=== PATIENT | male | born 1940 | race Caucasian/White ===

== ENCOUNTER 2018-03-20 08:48 | Inpatient (IN) | payer MEDICARE, SELFPAY ==
[2018-03-08 13:00] VITALS: BP 128/68; PULSE 76; RESP 16; TEMP 36.8; O2SAT 98; BMI 31.4
--- NOTE | 2018-03-08 13:32 | SDCEKG_ITS ---
Test Reason : Blood Pressure : / mmHG Vent. Rate : 071 BPM Atrial Rate : 071 BPM P-R Int : 128 ms QRS Dur : 078 ms QT Int : 378 ms P-R-T Axes : 044 027 041 degrees QTc Int : 410 ms Normal sinus rhythm Possible Left atrial enlargement Borderline ECG Confirmed by FAITH DE LA ROSA, LUCHO ([id number]), art editor ISABELL CLEMENTE ([id number]) on 03/13/2018 8:34:15 AM Referred By: Don Chisholm Confirmed By:LUCHO CUEVAS MD
[2018-03-08 13:55] LABS: Absolute Lymphocyte Count 2.27 X10^3/ul (0.83-4.51); Absolute Neutrophil Count 3.6 X10^3/uL (2.0-7.7); Basophil# 0.02 X10^3/uL; Basophil% 0.3 % (0-1); Eosinophil# 0.12 X10^3/uL; Eosinophils% 1.8 % (0-5); Hematocrit 39.1 % (40-54); Hemoglobin 12.7 g/dl (13.0-16.5); Lymphocyte # 2.27 X10^3/ul (4.0); Lymphocyte % 33.6 % (19-41); Mean Corp Hgb Conc 32.5 g/gl (32-36); Mean Corpuscular Hgb 30.4 pg (27.0-32.0); Mean Corpuscular Volume 93.5 fL (80-94); Mean Platelet Vol. 9.2 fl (6.2-12.0); Monocyte# 0.71 X10^3/uL; Monocyte% 10.5 % (0-10); Neutrophil # 3.63 X10^3/uL (2.7-7.7); Neutrophil % 53.7 % (47-70); POSITIVE COUNT NO; POSITIVE DIFFERENTIAL NO; POSITIVE MORPHOLOGY NO; Platelet Count 299 K/mm3 (150-450); RBC Distribution Width CV 13.8 % (11.6-14.6); RBC Distribution Width SD 46.6 fl (35.1-43.9); Red Blood Count 4.18 M/mm3 (4.6-6.2); White Blood Count 6.8 K/mm3 (4.4-11.0)
[2018-03-08 14:18] LABS: Anion Gap 8 (5-15); BUN 14 mg/dL (7-18); BUN/Creat Ratio 14.3 RATIO (10-20); Calcium,Total 8.9 mg/dL (8.5-10.1); Chloride 104 mmol/L (98-107); Creatinine, Serum 0.98 mg/dL (0.70-1.30); EST Glomerular Filtration Rate 79 mL/min (>60); Est Glom Filt Rate - Afr Amer 95 mL/min (>60); Estimated Creatinine Clearance 58.08 ml/min; Glucose 102 mg/dL (74-106); Sodium Level 142 mmol/L (136-145)
--- NOTE | 2018-03-10 08:48 | HP.PCM_ITS ---
History and Physical DATE OF SURGERY: 03/20/2018 SCHEDULED PROCEDURE: Left total knee arthroplasty HISTORY OF PRESENT ILLNESS: This is a 77-year-old male who is been having ongoing pain in the left knee for several years duration. Patient has been treated in the past by Dr. Christian Jiménez. Patient states his pain is intermittent and aching. He has increased pain going up and down stairs, walking any amount of distance, and sitting for extended periods of time. Patient has difficult time standing on the leg more than a half hour. Patient states he has tripped/stumbled secondary to his left knee pain. He now does his activities very slowly. He has tried rest, ice, heat, and cortisone injection with minimal relief. Patient recently went on a vacation and had significant increase in pain after walking in sand. He complains of pain over the medial aspect of the knee. He does have start up pain. He does complain of instability. He has tried oral medications consisting of Tylenol, Aleve. Patient has been through physical therapy with minimal relief. He had Euflexxa injections with only 3 months of relief. Patient's last cortisone injection only gave him relief for approximately 6 weeks. Patient currently denies any chest pain, shortness of breath, fevers chills, recent infections. After failing conservative measures and discussing all treatment options with Dr. Don Chisholm, the patient would like proceed with a left total knee arthroplasty. Patient has medical history pertinent for hypertension and previous prostate cancer. He also has gastroesophageal reflux. REVIEW OF SYSTEMS: ROS: Const: Denies change in appetite, fever,or weight change. CV: Denies chest pain, heart murmur and irregular heartbeat. Resp: Denies cough, pneumonia, SOB, tuberculosis and wheezing. GI: Denies constipation, diarrhea, difficulty swallowing, heartburn, nausea, bloody stools and vomiting. : Urinary: denies incontinence. Musculo: Reports limp, but denies leg swelling, trouble walking and weakness. Skin: Denies Raynaud's, history of shingles and tattoo. Neuro: Denies ambulatory dysfunction, dizziness, numbness/tingling and tremor. Psych: Denies anxiety, insomnia and stress. Leobardo/Lymph: Denies anemia, bleeding/bruising tendency and past transfusion. Reviewed, no changes. PAST MEDICAL HISTORY: Advance Care Plan: Other Directive, LIVING WILL Effective Date: 04/11/2017 PMH: Medical Problems: Cancer, Hard of Hearing, High Blood Pressure, Hypercholesterolemia Accidents: Fracture - RT HIP 2015 @[facility] Surgical Hx: Hernia Repair - @[facility] Prostate Surgery - (1998) RT Hip FX - (2014) [facility] - SEVERAL YEARS AGO Carpal Tunnel Release LT, Carpal Tunnel Release RT Laminectomy - (09/07/2016) [email or web address] Anesthesia Complications: None Assistive Devices: Glasses, Hearing Aid Reviewed, no changes. SOCIAL HISTORY: SH: Marital: .Occupation: Retired.Work Status: Retired.Hand Dominance: Right- handed. Personal Habits: Cigarette Use: Former.Alcohol: Daily.Drug Use: Denies Use.Enjoy Exercising: Daily. Reviewed, no changes. VITALS: Ht: 67 Wt: 201lb Wt k.174 BMI: 31.5 BP: 169/72 Pulse: 89 Resp: 16 T: 97.6 T: 36.4C ALLERGIES: No Known Drug Allergy MEDICATIONS: Simvastatin 20 mg 1 by mouth every day, Centrum Silver 1 tab PO daily, Caltrate 600 1500 (600 Ca) MG 2 tabs PO daily, Glucosamine Chondroitin Advanced 2 tabs PO daily, Lisinopril-Hydrochlorothiazide 10-12.5 mg 1 tab PO daily, Omeprazole 20 mg 1 by mouth every day, [place] Aspirin Ec Low Dose 81 mg 1 tab PO daily, Preservision/Lutein 1 cap PO bid, Aleve 220 mg prn PRE-OP EXAM: General appearance:NORMAL Other: Eyes: Conjunctivae and lids: NORMAL Pupils: ERR Ears, Nose, Mouth, and Throat: NORMAL Other: Inspection of lips, teeth and gums: NORMAL Other: Neck: Examination of neck: no masses noted. Respiratory: Assessment of respiratory effort: NORMAL Other: Auscultation of lungs: clear to auscultation no wheezes, rhonchi or rales. Cardiovascular: Auscultation of heart: regular rate and rhythm, no murmurs, gallops or rubs. Exam of carotid arteries: NORMAL Other: Gastrointestinal: Exam of abdomen: soft, nontender, nondistended bowel sounds present. PHYSICAL EXAMINATION: Patient walks with an antalgic gait. Left knee is cool to touch without erythema or signs of infection. Patient does have varus alignment. He has tenderness to palpation of the medial joint line. Range of motion left knee lacks 3 of full extension to 120 of flexion. Stable to varus and valgus stress test. Sensation intact to light touch. Neurovascularly intact. IMAGING STUDIES: X-rays of the left knee reveal varus alignment with medial joint space narrowing , subchondral sclerosis, osteophyte formation consistent with severe tricompartmental osteoarthritis. IMPRESSION: 1. Severe left knee tricompartmental osteoarthritis 2. Hypertension 3. Hypercholesterolemia 4. History of prostate cancer 5. Gastroesophageal reflux disease PLAN: Dr. Chisholm did discuss and review with the patient all treatment options including surgical versus nonsurgical options. Patient does wish to proceed with the above-stated procedure. Potential risks, benefits, and complications of the procedure were discussed in detail including but not limited to , infection, nerve and blood vessel damage, persistent pain, numbness, tingling, paresthesias, blood clot, pulmonary embolism, and requirement for possible further surgery. The patient expressed full understanding and has no further questions for the doctor. Patient does agree to proceed with the above-stated procedure and has signed the surgery consent form. We have obtain surgical clearance from his primary care physician Dr. Edwards. ___ I have re-examined the patient. There are no clinical changes since date of exam. ___ See progress notes for changes. ___ Dictated on admission Date: Time: Signature:
--- NOTE | 2018-03-13 11:15 | CASEMGMT ---
Call placed to patient, no answer. Message left. Mckenzie Uribe LPN Clinical Support
--- NOTE | 2018-03-14 10:09 | CASEMGMT ---
REC'D VOICEMAIL FROM PATIENT'S RETURNING PHONE CALL. ATTEMPTED TO CALL PATIENT BACK AT THIS TIME, NO ANSWER, VOICEMAIL LEFT. STEPHANIE CASTILLO LPN CLINICAL SUPPORT
--- NOTE | 2018-03-14 12:32 | CASEMGMT ---
Spoke with regarding discharge needs following upcoming surgery. Plan is for patient to return home with assistance from . Outpatient physical therapy is set up in [place], will assist with transportation. Patient has a walker with wheels and brakes, does not have a standard walker. Patient does have a shower seat and toilet riser, no grab bars. Patient has bed and bath on 1st level of the home. Informed that RN-CM will follow up with patient during hospital stay. Mckenzie Uribe LPN Clinical Support
[2018-03-20] VITALS (9 sets, daily range): BP systolic 121–159; BP diastolic 50–89; PULSE 84–100; RESP 16–18; TEMP 36.3–36.8; O2SAT 93–97; BMI 31.4
[2018-03-20] MEDS: Acetaminophen 500 MG Tablet 1000 MG PO ×3 (09:32→21:11)
[2018-03-20] MEDS: oxyCODONE HCl Cr 10 MG Tablet PO (09:32)
[2018-03-20] MEDS: Celecoxib 200 MG Capsule 400 MG PO (09:33)
[2018-03-20] MEDS: Cefazolin 2 GM in 0.9% Normal Saline 100 ML IV (10:56)
[2018-03-20] MEDS: Lactated Ringers 1,000 ML 999 ML IV (11:00)
[2018-03-20] MEDS: Scopolamine 1mg/72hr Patch 1 PATCH TD (12:30)
--- NOTE | 2018-03-20 12:36 | OP.PCM_ITS ---
Report of Operation Date of Procedure: 03/20/18 Pre-Operative Diagnosis: Left knee primary OA Post-Operative Diagnosis: Left knee primary OA Surgery/Procedure Performed:: Left knee TKA Description of Surgical Findings:: Stable knee with good patella tracking, press-fit cruciate retaining knee women's swim coach: Sindi Main Type of Anesthesia:: Spinal Anesthesiologist: Hilario Segura Special Medications: 2 g Ancef, 1 g TXA at incision, 1 g TXA closure, 10 mg Decadron, joint cocktail (5 mg Duramorph, 30 mL of 0.5% Ropivicaine, 1000 units of epinephrine, 30 mg of Toradol) Specimen's removed: Bony cuts Estimated Blood Loss (mL): 50 Fluids Replaced: 1600 ml crystalloid Description of Procedure: Implants used: 1. Bluejacket size 5 press-fit triathlon cruciate retaining distal femoral component 2. Bluejacket size 5 press-fit tibial baseplate 3. Bluejacket X3 9 mm CS polyethylene 4. Mikel X3 35 mm asymmetric patella Brief history operative indications: 77-year-old m with history of L knee osteoarthritis with radiographic findings with loss of joint space, osteophyte formation and subchondral sclerosis. Failed conservative measures as mentioned in the H&P. Discussion of total knee arthroplasty as well as risk and benefits were discussed the patient including but not limited to blood loss, DVTs, PEs, neurovascular damage, general risk of anesthesia including loss of life, and stiffness or instability were discussed with patient. Patient demonstrated understanding and was able to sign informed consent. Procedure: On the date of procedure patient's L lower extremity was marked in the preoperative area. The patient was then taken back to the operating room where the patient was placed on the table in the supine position. All bony prominences were identified a well-padded. Anesthesia assumed control of the C-spine and airway and remained controlled throughout the remainder of the procedure. A tourniquet was placed on the L upper thigh and the leg was prepped in a sterile fashion. The surgeon then scrubbed at this time. Upon reentering the room R lower extremity was draped in a standard orthopedic fashion. A timeout was then called and everyone agreed upon the side, the site, the procedure to be performed, patient's identity and antibiotics given. Esmarch bandage was used to exsanguinate the extremity and the tourniquet was placed up to 250 mmHg with the knee in flexion. A midline skin incision was made and sharp dissection was taken down through skin subcutaneous tissue and fat. The standard medial parapatellar incision was made and the patella was subluxed laterally. The standard deep MCL release was done and the fat pad was resected. Next our attention was directed to the femur. Navigation pins were placed, navigation was registered. The distal femoral cutting block was pinned into place and 10 mm of distal femur resection was completed. The distal femoral cut was verified with navigation. The knee was then placed in deep flexion in the standard [employer] sizing guide was used to place the femoral component in 3? external rotation based on the posterior condyles. A size 5 4-in-1 cutting block was selected and pinned into place. The anterior cut was then made and checked for notching. The subsequent anterior chamfer cuts, posterior condylar cuts and posterior chamfer cuts were made while ensuring the MCL and LCL were protected. Our attention was then turned to the tibia where the navigation pins were placed, navigation was registered. [employer] tibial cutting guide was used to make the appropriate tibial cut 90 degrees from the mechanical axis. Navigation was then used to verify the cut. A size 5 tibial base plate was selected. the knee was flexed to 90 degrees and the soft tissues and posterior osteophytes were removed from the joint. 40 cc of the periarticular injection was injected into the posterior medial corner of the joint. The appropriate trials were then placed on the femur and tibia. A trial polyethylene was trialed to ensure proper balancing and stability of the knee. Patella tracking, was then verified and corrected appropriately as needed. The appropriate tibial internal rotation was then marked with a bovie. Our attention was then directed to the patella. The patella was everted and a flat resection was made. The lug holes were drilled and the patella trial was placed. Patellar tracking was checked and deemed appropriate. Once we were happy lug holes were drilled for the femur and trial components were removed. Cement was mixed at this time and the tourniquet was let down the tibia was subluxed and pinned into place and the keel was punched and the canal was reamed. Final components were verified and opened, and cement was mixed in a vacuum. Mikel Simplex cement was used. The wound was copiously irrigated with normal saline. When the cement was ready the press-fit components were impacted into place starting with the tibia, femur and finally the patella cemented into place. The trial poly component was placed and the knee was placed in full extension. All excess cement was removed in the process. Once the cement had cured the tracking, alignment and balance were verified and a size 9 mm polyethylene component was placed. Once the final components were placed the wound was copiously irrigated with normal saline solution and the periarticular injection was given. The wound was closed in a layer walker fashion using #1 vicryl interrupted sutures for the arthrotomy, 2-0 interrupted Vicryl suture for the subcuticular layer and lee ann for final skin closure. A sterile compressive dressing was then placed. The patient was then awakened from anesthesia, transferred to the rel paso and transferred to the PACU for recovery. Post op plan DVT ppx: ASA 81mg, thigh high compression stockings Follow up: in office in 2 weeks for wound check PT: to start POD #0 at hospital, outpatient PT should be arranged. Patient will be admitted to the hospital based on his age and medical comorbidities. Grafts/Implants Used: Bluejacket triathlon total knee replacement - Complications None - Admit VTE Documentation VTE Present on Admission: No VTE Mechan Device Prophylaxis: SCD's, Thigh High TIFFANY Hose VTE Pharm Prophylaxis ordered?: Yes
--- NOTE | 2018-03-20 13:00 | RAD_ITS ---
STUDY: X-RAY - LEFT KNEE REASON FOR EXAM: Male, 77 years old. POST OP TECHNIQUE: 2 view(s) of the knee. COMPARISON: None. FINDINGS: There is a left knee arthroplasty in good alignment. The soft tissue structures are unremarkable. RAD/Knee 1 or 2 Views IMPRESSION: There is a left knee arthroplasty in good alignment. Electronically Signed: Darrion Muñoz MD at 13:52 EDT Tel , Service support ,
[2018-03-20] MEDS: 0.9% NaCl Peripheral Flush Adult/Peds IV (14:58)
[2018-03-20] MEDS: Morphine 2 MG/ML Syringe IV (14:58)
[2018-03-20] MEDS: Lactated Ringers 1,000 ML 125 ML IV (15:28)
[2018-03-20] MEDS: Aspirin 81 MG TAB.CHEW PO (17:09)
[2018-03-20] MEDS: Calcium Carb/Vitamin D 1 TABLET Tablet PO (17:09)
[2018-03-20] MEDS: Cefazolin 1 GM/50 ML BAG IV (18:46)
[2018-03-20] MEDS: Atorvastatin Calcium 10 MG Tablet PO (21:10)
[2018-03-20] MEDS: oxyCODONE 5 MG Tablet PO (21:11)
[2018-03-20] MEDS: Senna/Docusate Sodium 1 Tablet 2 TABLET PO (21:11)
[2018-03-21 00:50] VITALS: BP 111/65; PULSE 97; RESP 18; TEMP 36.6; O2SAT 95
[2018-03-21] MEDS: Cefazolin 1 GM/50 ML BAG IV (02:48)
[2018-03-21 04:00] VITALS: BP 156/66; PULSE 68; RESP 18; TEMP 36.7; O2SAT 96
[2018-03-21 05:48] LABS: Hematocrit 32.3 % (40-54); Hemoglobin 10.8 g/dl (13.0-16.5); Mean Corp Hgb Conc 33.4 g/gl (32-36); Mean Corpuscular Hgb 31.2 pg (27.0-32.0); Mean Corpuscular Volume 93.4 fL (80-94); Platelet Count 200 K/mm3 (150-450); RBC Distribution Width SD 45.9 fl (35.1-43.9); Red Blood Count 3.46 M/mm3 (4.6-6.2); White Blood Count 12.6 K/mm3 (4.4-11.0)
[2018-03-21 05:58] LABS: Scan Indicated on CBC? Y/N NO
[2018-03-21 06:09] LABS: Anion Gap 10 (5-15); BUN 17 mg/dL (7-18); BUN/Creat Ratio 14.9 RATIO (10-20); Calcium,Total 8.8 mg/dL (8.5-10.1); Chloride 101 mmol/L (98-107); Creatinine, Serum 1.14 mg/dL (0.70-1.30); EST Glomerular Filtration Rate 66 mL/min (>60); Est Glom Filt Rate - Afr Amer 80 mL/min (>60); Estimated Creatinine Clearance 49.93 ml/min; Glucose 133 mg/dL (74-106); Sodium Level 136 mmol/L (136-145)
[2018-03-21] MEDS: Acetaminophen 500 MG Tablet 1000 MG PO ×2 (06:14→13:20)
--- NOTE | 2018-03-21 06:35 | NURSING ---
Pt confused this AM, stated he was getting ready for surgery and unsure were his went. Pt reoriented that he had surgery yesterday and no surgery was planned for today. Scope patch removed from behind left hear and chair alarm on. Call light in reach.
[2018-03-21 08:00] VITALS: PULSE 80
[2018-03-21] MEDS: Aspirin 81 MG TAB.CHEW PO (08:08)
[2018-03-21] MEDS: Calcium Carb/Vitamin D 1 TABLET Tablet PO (08:09)
[2018-03-21] MEDS: Famotidine 20 MG Tablet PO (08:11)
[2018-03-21] MEDS: Pantoprazole Sodium 20 MG Tablet PO (08:11)
[2018-03-21] MEDS: HYDROCHLOROTHIAZIDE 12.5 MG CAPSULE PO (08:11)
[2018-03-21] MEDS: Lisinopril 10 MG Tablet PO (08:12)
[2018-03-21] MEDS: Senna/Docusate Sodium 1 Tablet 2 TABLET PO (08:12)
[2018-03-21] MEDS: oxyCODONE 5 MG Tablet PO (08:12)
--- NOTE | 2018-03-21 08:16 | PCM.PN.ORT ---
Subjective: The patient was sitting in bedside chair upon examination. Patient denies any chest pain, shortness of breath, dizziness, lightheadedness, nausea or vomiting, or calf pain. Pain is controlled on medications. No adverse overnight events. Patient did have postoperative confusion per nursing. Patient thought he was having surgery today. Nursing removed the scopolamine patch. Upon examination of patient this morning patient is doing well. Patient is alert and oriented x3. Patient knows he had surgery on his left knee. Patient is adamant he go home today. Objective: Vital signs stable and afebrile. Patient is able to plantarflex and dorsiflex actively. Sensation is intact to light touch to saphenous, sural, superficial and deep peroneal, and tibial distribution. Dressing is clean dry and intact. Negative Homans bilaterally, negative signs and symptoms of DVT. - Physical Exam General: Alert, Oriented x3, Cooperative, No apparent distress Vital Signs Temp Pulse Resp BP Pulse Ox 98.1 F 68 18 156/66 H 96 03/21/18 04:00 03/21/18 04:00 03/21/18 04:00 03/21/18 04:00 03/21/18 04:00 Oxygen Delivery Method Room Air Weight: 91.172 kg Body Mass Index (BMI) 31.4 Intake and Output for Last 24 Hours 03/19/18 03/20/18 03/21/18 23:59 23:59 23:59 Intake Total 2662 / 2662 1686 / 1686 Output Total 250 / 250 Balance 2662 / 2662 1436 / 1436 Laboratory Tests Past 24 Hrs 03/21/18 03/21/18 05:14 05:14 WBC 12.6 H RBC 3.46 L Hgb 10.8 L Hct 32.3 L MCV 93.4 MCH 31.2 MCHC 33.4 RDW 14.0 RDW Differential 45.9 H Plt Count 200 MPV 10.0 Sodium 136 Potassium 4.0 Chloride 101 Carbon Dioxide 25.0 Anion Gap 10 BUN 17 Creatinine 1.14 Estim Creat Clear Calc 49.93 Est GFR (MDRD) Af Amer 80 Est GFR (MDRD) Non-Af 66 BUN/Creatinine Ratio 14.9 Glucose 133 H Calcium 8.8 Medical Necessity - Tobacco Use Smoking Status: Former smoker Assessment/Plan 1. S/P left total knee arthroplasty POD #1 2. Continue Pain Medications: Tylenol and OxyIR 3. DVT Prophylaxis: Aspirin 81 mg twice daily with food for 4 weeks 4. PT/OT: Weightbearing as tolerated 5. H & H: 10.8/32.3, asymptomatic 6. Leukocytosis: Currently 12.6, afebrile. Patient did receive Decadron intraoperatively 7. Encouraged Incentive Spirometry 8. Postoperative confusion: No history of dementia. Patient did have scopolamine patch removed and did see improvement. 9. Disposition: Plan will be for possible discharge home this afternoon/evening. Since having the scopolamine patch removed patient has improved. Patient is alert and oriented x3. I would like to see how patient does with physical therapy today. If pain is controlled I would be okay with patient going home today. Limit the narcotic use to avoid exacerbation of confusion..
--- NOTE | 2018-03-21 08:28 | DCINST_ITS ---
Discharge Diet: No Restrictions Discharge Activity: May Not Drive May shower in (days): 1 - Turned dressing away from water Ice area for (Minutes): 20 - every hour while awake. Weight Bearing Status: Weight bearing as tolerated Elevate: Operative Extremity Additional Activity Instructions:: Wear elastic stockings for 2 weeks after your surgery. Call your doctor if your incision/area has: Continuous Slow Oozing, Sudden Increased Bleeding, Increased Pain/ Swelling, Increased Redness, Foul Smelling Discharge Call your doctor if you observe: Fever of 101 or Higher, Coldness, Increased Pain, Numbness or Tingling, Change in Color, Calf discomfort, Uncontrolled pain Remove Dressing in (days):: 4 - Okay to remove on March 25, 2018 Additional Instructions: Follow [facility] postop instructions Do not take supplements, vitamins, herbals for 2 weeks postoperatively Do not take naproxen/Aleve over the next 4 weeks. Allergies/Adverse Reactions: Allergies No Known Allergies Allergy (Verified 03/08/18 12:56) Medications to take at Discharge Calcium Carbonate/Vitamin D3 [Caltrate 600 Plus D3 Tablet] 1 each PO BID 08/28/16 Lisinopril/Hydrochlorothiazide [Zestoretic 03/29.5 Tablet] 1 tablet PO DAILY 08/28/16 Omeprazole 1 tab PO DAILY 08/28/16 Simvastatin [Zocor] 20 mg PO QHS 08/28/16 Acetaminophen [Tylenol] 1,000 mg PO Q8 #90 tablet 03/21/18 Aspirin [Aspirin, Baby] 81 mg PO BIDCM #60 tab.chew 03/21/18 Meloxicam [Mobic] 7.5 mg PO BID #30 tablet 03/21/18 Oxycodone [Oxyir] 5 - 10 mg PO Q4H PRN PRN 5 Days #60 tablet 03/21/18 Senna/Docusate Sodium [Senokot-S] 2 tablet PO BID #20 tablet 03/21/18 The following prescriptions were given: Oxycodone [Oxyir] 5 - 10 mg PO Q4H PRN PRN 5 Days #60 tablet PRN Reason: Mod-Severe Pain (4-10/10) Acetaminophen [Tylenol] 1,000 mg PO Q8 #90 tablet Aspirin [Aspirin, Baby] 81 mg PO BIDCM #60 tab.chew Meloxicam [Mobic] 7.5 mg PO BID #30 tablet Senna/Docusate Sodium [Senokot-S] 2 tablet PO BID #20 tablet Primary Care Physician: Rafiq Contreras MD [Primary Care Provider] - Test Results: Test results from this visit will be discussed in further detail at your follow- up appointment, if applicable. Please Follow Up With: [facility] When: 03/25/18 @ 9:45 am Please Follow Up With: Manny Quezada PA-C When: 04/03/18 @ 9:45 am
[2018-03-21 09:22] VITALS: BP 133/68; PULSE 80; RESP 18; TEMP 37.5; O2SAT 95
--- NOTE | 2018-03-21 11:12 | CASEMGMT ---
RN CM Note: Intro role of CM to patient and his in room. DC Plan is to return home on discharge, will provide transportation to outpt therapy. First therapy appt is in [place] on Sunday @9:45. No further needs identified. Odilon IBARRAN RN ACM
== END 2018-03-21 14:15 | disposition home or self-care (01) | DRG 470 ==
PROVIDERS: Admitting Provider Specialist; Family Provider Family Medicine; PCP Family Medicine; Visit Provider Specialist
PROC: 0SRD0J9 Replacement of Left Knee Joint with Synthetic Substitute, Cemented, Open Approach (ICD-10-PCS; CPT 27447; principal; 2018-03-20 10:30)
DX: M17.12 Unilateral primary osteoarthritis, left knee (principal); Z23 Encounter for immunization; R41.0 Disorientation, unspecified; I10 Essential (primary) hypertension; E78.00 Pure hypercholesterolemia, unspecified; Z85.46 Personal history of malignant neoplasm of prostate; K21.9 Gastro-esophageal reflux disease without esophagitis; Z87.891 Personal history of nicotine dependence
CPT/HCPCS: 36415; 73560; 80048; 85025; 85027; 87081; 93005; 97110; 97162; 97165; 97530; 97535; 99251; C1776; J7120; 90686; A4216; G0463; J2405

== ENCOUNTER 2018-05-02 19:04 | Emergency (ER) | payer MEDICARE, SELFPAY ==
[2018-05-02 19:08] VITALS: BP 135/83; PULSE 98; RESP 14; TEMP 36.6; O2SAT 98; BMI 29.5
--- NOTE | 2018-05-02 19:40 | ED.RN ---
pt rude in triage, did not understand why he had to wait to be triaged since we only had one pt in the ED. i explained that the ED was almost full. i thought this was an emergency room. pt was not actively bleeding at the time of arrival the the ED from his wound.
--- NOTE | 2018-05-02 21:05 | ED.VISSUMM ---
- ER Visit Summary Date of Service: 05/02/18 Chief Complaint: Laceration History of Present Illness: The patient is a [address] Chisholm and Dr. Contreras. He had a left total knee arthroplasty on March [address] Chisholm. He states that his wound is completely healed up and he actually saw Dr. Chisholm today. He had his lee ann removed approximately March 30. Reports that this evening approximately 1 hour ago he missed a step and hit his left knee on the ground. States that he has occasional stabs of pain. However, he is worried because his incision broke open. He reports his only other pain is to his left hand and it is 1 out of 10 severity. No blow to the head or loss of consciousness. No neck, back, shoulder, wrist, or hip pain. He is not on any blood thinners. Physical Examination: Vitals: Stable. Afebrile. General: Well-nourished and well-developed. Head: Normocephalic atraumatic. Neck: Supple, no lymphadenopathy. No JVD. Nontender. Cardiovascular: Regular rate and rhythm. No murmurs. Respiratory: No respiratory distress. Clear to auscultation bilaterally. Abdominal: Soft, nontender, nondistended, normal bowel sounds. No guarding, rebound, or peritoneal signs. Back: Nontender. Extremities: 4 cm laceration in the incision from his left total knee arthroplasty. This is over his patella. There is no active bleeding. He is neurovascular intact distal to this. Skin: Normal color, no rash. Neurologic: Alert and oriented ?3. Cranial nerves II through XII are intact. Normal strength and sensation. Psych: Normal affect. Test Results: Patient refused x-rays Emergency Department Course and Treatment: Patient was treated with Keflex p.o. He refused pain medications. He had his laceration repaired. He tolerated it well. Treatment Plan: Patient was discussed with Dr. [place]. He will be discharged on Keflex. Instructed follow-up Dr. Chisholm in 1 week for another exam. Return to the emergency department for redness, increasing pain, drainage, or any other concerns. Disposition: To home in improved and stable condition. Impression: 1. Laceration left knee, 4 cm, repaired. 2. Status post left total knee arthroplasty March 20, 2018. Procedure note: Wound was cleansed with chlorhexidine soap. Anesthetized with 1% lidocaine without epinephrine. Copiously irrigated with normal saline. Wound was explored there is no foreign material present. It was closed with 7 simple interrupted 4-0 ethilon sutures. The patient tolerated it well. This note was generated with [employer] dictation software. It may contain incorrect words, spelling, and punctuation that were not noted in review of the chart prior to signing ED Disposition - Plan for ED Patient: Disposition: Home or Assisted Living Chief Complaint: Wound Instructions: ED Laceration Ext Sutr Stap Tape Prescriptions: Cephalexin [Keflex] 500 mg PO Q6 #40 capsule Referrals: Don Chisholm MD [STAFF PHYSICIAN] - 1 Week
[2018-05-02] MEDS: Cephalexin 250 MG Capsule 500 MG PO (21:14)
[2018-05-02] MEDS: oxyCODONE 5 MG Tablet PO (21:15)
[2018-05-02 21:32] VITALS: BP 167/76; PULSE 86; RESP 16; O2SAT 96
== END 2018-05-02 21:33 | disposition home or self-care (01) ==
LOC: ED 19:54
PROVIDERS: Emergency Provider Emergency Medicine; Family Provider Family Medicine; PCP Family Medicine
DX: S81.012A Laceration without foreign body, left knee, initial encounter (principal); W10.9XXA Fall (on) (from) unspecified stairs and steps, initial encounter; Y93.9 Activity, unspecified; Y92.89 Other specified places as the place of occurrence of the external cause; Y99.9 Unspecified external cause status; I10 Essential (primary) hypertension; E78.00 Pure hypercholesterolemia, unspecified; Z96.652 Presence of left artificial knee joint
CPT/HCPCS: 12002; 99283; J7030

== ENCOUNTER → 2018-05-14 12:40 | Outpatient (CLI) | payer MEDICARE, SELFPAY ==
[2018-05-02 19:08] VITALS: BMI 29.5
--- NOTE | 2018-05-14 12:42 | VDLE_ITS ---
Reason For Study: LLE Pain RIGHT LEFT CFV is compressible, spontaneous, phasic, GSV is normal. competent and demonstrates normal CFV is compressible, spontaneous, phasic, augmentation. competent, and demonstrates normal Procedure augmentation. Exam performed in department. FV is compressible, spontaneous, phasic, A preliminary report was called and/or faxed competent and demonstrates normal to Dr. Chisholm. augmentation. POP V is compressible, spontaneous, phasic, competent and demonstrates normal augmentation. T/P Trunk is compressible. PTV is compressible. LT PerV is compressible. <> Interpretation Summary Deep veins of the left lower extremity are patent and compressible segmentally. There is no evidence of left lower extremity deep vein thrombosis. Valvular competence appears intact within the proximal deep venous system on the left . The left greater saphenous vein appears patent and compressible segmentally. Ordering Physician: Don Chisholm Referring Physician: MD James Contreras Performed By: Meliza Castañeda RVT and Student
--- OUTSIDE RECORDS SUMMARY | 2018-06-26 05:08 | XMS RPT_ITS ---
:1940 Author Organization OHIP Care Team Providers Name Role Phone KAREY PRECIADO Attending Unavailable KAREY PRECIADO Attending Unavailable Don Chisholm Admitting Unavailable Don Chisholm Attending Unavailable Don Chisholm Referring Unavailable Neil Preciado Primary Care Unavailable UmuJose schusterril Attending Unavailable Don Chisholm Referring Unavailable Neil Preciado Primary Care Unavailable Jovanny Ramirez Attending Unavailable Don Chisholm Attending Unavailable Don Chisholm Referring Unavailable Neil Preciado Primary Care Unavailable PROBLEMS PROBLEMS DATE TYPE CONDITION / CODE ATTENDING STATUS SOURCE 05/15/2018 Unknown M79.662 - Pain in Don Chisholm Active [place] left lower leg / Community M79.662(ICD-10) Hospital Repository 03/21/2018 Unknown Z96.652 - Presence Don Chisholm Active [place] [facility] left artificial Community knee joint / Hospital Z96.652(ICD-10) Repository 04/08/2018 Unknown I10 - Essential [facility], [place] Active [place] (primary) [facility] hypertension / Hospital I10(ICD-10) Repository PROCEDURES PROCEDURES No Procedure Records FoundRESULTS RESULTS VENOUS DUPLEX LOWER Observed: 05/15/2018 Status: F Source: [place] EXTREMITY 8:37 AM [facility] Cardiovascular Services [address] [place] [address] Venous Duplex US, Unilateral 05/14/18 1245 MR#: [id number] Acct: [id number] Name: CHICA HALEY Rep #: [id number] : 1940 77 From: Gregg Young MD Attending Dr: Don Chisholm MD Status: REG CLI Ordering Dr: Don Chisholm MD Date: 05/14/18 Location: CVS Sex: M C Admitted: Reason For Study: LLE Pain RIGHT LEFT CFV is compressible, spontaneous, phasic, GSV is normal. competent and demonstrates normal CFV is compressible, spontaneous, phasic, augmentation. competent, and demonstrates normal Procedure augmentation. Exam performed in department. FV is compressible, spontaneous, phasic, A preliminary report was called and/or faxed competent and demonstrates normal to Dr. Chisholm. augmentation. POP V is compressible, spontaneous, phasic, competent and demonstrates normal augmentation. T/P Trunk is compressible. PTV is compressible. LT PerV is compressible. <> Interpretation Summary Deep veins of the left lower extremity are patent and compressible segmentally. There is no evidence of left lower extremity deep vein thrombosis. Valvular competence appears intact within the proximal deep venous system on the left . The left greater saphenous vein appears patent and compressible segmentally. Ordering Physician: Don Chisholm Referring Physician: MD Diane [facility] Performed By: Meliza Castañeda RVT and Student 05/15/18 0836 Date Gregg A Young MD CC: Neil Preciado MD; Don Chisholm MD Date Dictated: 05/14/18 1245 Date Transcribed: 05/15/18 0836 Wedding Transportation Driver: Signed EMERGENCY DEPARTMENT Observed: 05/02/2018 Status: F Source: [place] SUMMARY 11:59 PM [facility] Medical Records Department [address] [place] [address] Emergency Department Summary 05/02/18 2105 MR#: [id number] Acct: [id number] Name: CHICA HALEY Rep #: [id number] : 1940 77 From: Jovanny Ramirez MD PCP: Neil Preciado MD Status: DEP ER - ER Visit Summary Date of Service: 05/02/18 Chief Complaint: Laceration History of Present Illness: The patient is a [address] Chisholm and Dr. Preciado. He had a left total knee arthroplasty on March [address] Chisholm. He states that his wound is completely healed up and he actually saw Dr. Chisholm today. He had his lee ann removed approximately March 30. Reports that this evening approximately 1 hour ago he missed a step and hit his left knee on the ground. States that he has occasional stabs of pain. However, he is worried because his incision broke open. He reports his only other pain is to his left hand and it is 1 out of 10 severity. No blow to the head or loss of consciousness. No neck, back, shoulder, wrist, or hip pain. He is not on any blood thinners. Physical Examination: Vitals: Stable. Afebrile. General: Well-nourished and well-developed. Head: Normocephalic atraumatic. Neck: Supple, no lymphadenopathy. No JVD. Nontender. Cardiovascular: Regular rate and rhythm. No murmurs. Respiratory: No respiratory distress. Clear to auscultation bilaterally. Abdominal: Soft, nontender, nondistended, normal bowel sounds. No guarding, rebound, or peritoneal signs. Back: Nontender. Extremities: 4 cm laceration in the incision from his left total knee arthroplasty. This is over his patella. There is no active bleeding. He is neurovascular intact distal to this. Skin: Normal color, no rash. Neurologic: Alert and oriented 3. Cranial nerves II through XII are intact. Normal strength and sensation. Psych: Normal affect. Test Results: Patient refused x-rays Emergency Department Course and Treatment: Patient was treated with Keflex p.o. He refused pain medications. He had his laceration repaired. He tolerated it well. Treatment Plan: Patient was discussed with Dr. [place]. He will be discharged on Keflex. Instructed follow-up Dr. Chisholm in 1 week for another exam. Return to the emergency department for redness, increasing pain, drainage, or any other concerns. Disposition: To home in improved and stable condition. Impression: 1. Laceration left knee, 4 cm, repaired. 2. Status post left total knee arthroplasty March 20, 2018. Procedure note: Wound was cleansed with chlorhexidine soap. Anesthetized with 1% lidocaine without epinephrine. Copiously irrigated with normal saline. Wound was explored there is no foreign material present. It was closed with 7 simple interrupted 4-0 ethilon sutures. The patient tolerated it well. This note was generated with [employer] dictation software. It may contain incorrect words, spelling, and punctuation that were not noted in review of the chart prior to signing ED Disposition - Plan for ED Patient: Disposition: Home or Assisted Living Chief Complaint: Wound Instructions: ED Laceration Ext Sutr Stap Tape Prescriptions: Cephalexin [Keflex] 500 mg PO Q6 #40 capsule Referrals: Don Chisholm MD [STAFF PHYSICIAN] - 1 Week What to do if you have Problems For any increased pain, shortness of breath, bleeding, nausea or vomiting, chest pain, or any unexpected problems, contact your Primary Care Provider. Call [facility] ([phone]) or report to the closest Emergency Room. Call 911 if necessary. 05/02/18 3319 <Electronically signed by Jovanny Ramirez MD> Date Jovanny Ramirez MD Cosigner Signature (If Indicated): Date CC: Neil Preciado MD DISCHARGE INSTRUCTION Observed: 03/21/2018 Status: F Source: [place] 8:28 AM [facility] Medical Records Department [address] [place] [address] Instructions for Home/Discharge Instructions 03/21/18 0826 MR#: [id number] Acct: [id number] Name: CHICA HALEY Rep #: [id number] : 1940 77 From: Manny Quezada PA-C PCP: Neil Preciado MD Status: ADM IN Discharge Diet: No Restrictions Discharge Activity: May Not Drive May shower in (days): 1 - Turned dressing away from water Ice area for (Minutes): 20 - every hour while awake. Weight Bearing Status: Weight bearing as tolerated Elevate: Operative Extremity Additional Activity Instructions:: Wear elastic stockings for 2 weeks after your surgery. Call your doctor if your incision/area has: Continuous Slow Oozing, Sudden Increased Bleeding, Increased Pain/ Swelling, Increased Redness, Foul Smelling Discharge Call your doctor if you observe: Fever of 101 or Higher, Coldness, Increased Pain, Numbness or Tingling, Change in Color, Calf discomfort, Uncontrolled pain Remove Dressing in (days):: 4 - Okay to remove on March 25, 2018 Additional Instructions: Follow [place] [facility] postop instructions Do not take supplements, vitamins, herbals for 2 weeks postoperatively Do not take naproxen/Aleve over the next 4 weeks. Allergies/Adverse Reactions: Allergies No Known Allergies Allergy (Verified 03/08/18 12:56) Medications to take at Discharge Calcium Carbonate/Vitamin D3 [Caltrate 600 Plus D3 Tablet] 1 each PO BID 08/28/16 Lisinopril/Hydrochlorothiazide [Zestoretic 03/29.5 Tablet] 1 tablet PO DAILY 08/28/16 Omeprazole 1 tab PO DAILY 08/28/16 Simvastatin [Zocor] 20 mg PO QHS 08/28/16 Acetaminophen [Tylenol] 1,000 mg PO Q8 #90 tablet 03/21/18 Aspirin [Aspirin, Baby] 81 mg PO BIDCM #60 tab.chew 03/21/18 Meloxicam [Mobic] 7.5 mg PO BID #30 tablet 03/21/18 Oxycodone [Oxyir] 5 - 10 mg PO Q4H PRN PRN 5 Days #60 tablet 03/21/18 Senna/Docusate Sodium [Senokot-S] 2 tablet PO BID #20 tablet 03/21/18 The following prescriptions were given: Oxycodone [Oxyir] 5 - 10 mg PO Q4H PRN PRN 5 Days #60 tablet PRN Reason: Mod-Severe Pain (-03/27) Acetaminophen [Tylenol] 1,000 mg PO Q8 #90 tablet Aspirin [Aspirin, Baby] 81 mg PO BIDCM #60 tab.chew Meloxicam [Mobic] 7.5 mg PO BID #30 tablet Senna/Docusate Sodium [Senokot-S] 2 tablet PO BID #20 tablet Primary Care Physician: Neil Preciado MD [Primary Care Provider] - Test Results: Test results from this visit will be discussed in further detail at your follow-up appointment, if applicable. Please Follow Up With: [facility] When: 03/25/18 @ 9:45 am Please Follow Up With: Manny Quezada PA-C When: 04/03/18 @ 9:45 am 03/21/18 0828 <Electronically signed by Manny Quezada PA-C> Date Manny Quezada PA-C CC: Neil Preciado MD CBC-COMPLETE BLOOD CNT Collected: 03/21/2018 Status: F Source: [place] NO DIFF 5:14 AM [facility] TYPE CODE TESTS RESULT OUT OF RANGE REFERENCE UNITS LAB L100.1000 4.4-11.0 K/mm3 High WBC 12.6 LAB L100.1200 4.6-6.2 M/mm3 Low RBC 3.46 LAB L100.1300 13.0-16.5 g/dl Low HGB 10.8 LAB L100.1400 40-54 % Low HCT 32.3 LAB L100.1500 80-94 fL Normal MCV 93.4 LAB L100.1600 27.0-32.0 pg Normal MCH 31.2 LAB L100.1700 32-36 g/gl Normal MCHC 33.4 LAB L100.1810 11.6-14.6 % Normal RDW CV 14.0 LAB L100.1820 35.1-43.9 fl High RDW SD 45.9 LAB L100.1900 150-450 K/mm3 Normal PLT 200 LAB L100.2000 6.2-12.0 fl Normal MPV 10.0 Performed By: #### L100.0500 #### [facility] [address] [place], [address] BASIC METABOLIC Collected: 03/21/2018 Status: F Source: [place] PROFILE (BMP) 5:14 AM [facility] TYPE CODE TESTS RESULT OUT OF RANGE REFERENCE UNITS LAB L501.0100 74-106 mg/dL High GLU 133 Result Comment: Fasting Glucose result greater than or equal to 126 mg/dL suggests DIABETES MELLITUS per A.D.A. criteria. Please note revised GLUCOSE reference range effective 2017. LAB L501.1000 7-18 mg/dL Normal BUN 17 LAB L501.1100 0.70-1.30 mg/dL Normal CREAT,SERUM 1.14 Result Comment: The validity of the calculated GFR AND GFRAA in patients over 70 years has not been determined. Clinical correlation is essential. LAB L501.1110 >60 mL/min Normal EST GFR 66 Result Comment: Non- GFR Calc LAB L501.1115 >60 mL/min Normal EST GFR - AA 80 Result Comment: GFR Calc LAB L501.1255 ml/min Normal Estimated CRCL 49.93 LAB L501.1300 10-20 RATIO Normal BUN/CRE 14.9 LAB L501.2200 8.5-10 mg/dL Normal .1 CA 8.8 LAB L501.5300 136-14 mmol/L Normal 5 NA 136 LAB L501.5600 3.5-5. mmol/L Normal 1 K 4.0 LAB L501.5900 98-107 mmol/L Normal CL 101 LAB L501.6100 21.0-3 mmol/L Normal 2.0 CO2 25.0 LAB L501.6200 5-15 Normal GAP 10 Performed By: #### L500.2500 #### [facility] [address] [place], [address] OPERATIVE REPORT Observed: 03/20/2018 Status: F Source: [place] 12:38 PM [facility] Medical Records Department [address] [place] [address] Operative Report 03/20/18 1232 MR#: [id number] Acct: [id number] Name: CHICA HALEY Rep #: [id number] : 1940 77 From: Don Chisholm MD PCP: Neil Preciado MD Status: ADM IN Y Location: [place] [address] Report of Operation Date of Procedure: 03/20/18 Pre-Operative Diagnosis: Left knee primary OA Post-Operative Diagnosis: Left knee primary OA Surgery/Procedure Performed:: Left knee TKA Description of Surgical Findings:: Stable knee with good patella tracking, press-fit cruciate retaining knee do all operator: Sindi Main Type of Anesthesia:: Spinal Anesthesiologist: Hilario Segura Special Medications: 2 g Ancef, 1 g TXA at incision, 1 g TXA closure, 10 mg Decadron, joint cocktail (5 mg Duramorph, 30 mL of 0.5% Ropivicaine, 1000 units of epinephrine, 30 mg of Toradol) Specimen's removed: Bony cuts Estimated Blood Loss (mL): 50 Fluids Replaced: 1600 ml crystalloid Description of Procedure: Implants used: 1. Rotonda West size 5 press-fit triathlon cruciate retaining distal femoral component 2. Rotonda West size 5 press-fit tibial baseplate 3. Rotonda West X3 9 mm CS polyethylene 4. Rotonda West X3 35 mm asymmetric patella Brief history operative indications: 77-year-old m with history of L knee osteoarthritis with radiographic findings with loss of joint space, osteophyte formation and subchondral sclerosis. Failed conservative measures as mentioned in the H AND P. Discussion of total knee arthroplasty as well as risk and benefits were discussed the patient including but not limited to blood loss, DVTs, PEs, neurovascular damage, general risk of anesthesia including loss of life, and stiffness or instability were discussed with patient. Patient demonstrated understanding and was able to sign informed consent. Procedure: On the date of procedure patient's L lower extremity was marked in the preoperative area. The patient was then taken back to the operating room where the patient was placed on the table in the supine position. All bony prominences were identified a well-padded. Anesthesia assumed control of the C-spine and airway and remained controlled throughout the remainder of the procedure. A tourniquet was placed on the L upper thigh and the leg was prepped in a sterile fashion. The surgeon then scrubbed at this time. Upon reentering the room R lower extremity was draped in a standard orthopedic fashion. A timeout was then called and everyone agreed upon the side, the site, the procedure to be performed, patient's identity and antibiotics given. Esmarch bandage was used to exsanguinate the extremity and the tourniquet was placed up to 250 mmHg with the knee in flexion. A midline skin incision was made and sharp dissection was taken down through skin subcutaneous tissue and fat. The standard medial parapatellar incision was made and the patella was subluxed laterally. The standard deep MCL release was done and the fat pad was resected. Next our attention was directed to the femur. Navigation pins were placed, navigation was registered. The distal femoral cutting block was pinned into place and 10 mm of distal femur resection was completed. The distal femoral cut was verified with navigation. The knee was then placed in deep flexion in the standard Mikel sizing guide was used to place the femoral component in 3 external rotation based on the posterior condyles. A size 5 4-in-1 cutting block was selected and pinned into place. The anterior cut was then made and checked for notching. The subsequent anterior chamfer cuts, posterior condylar cuts and posterior chamfer cuts were made while ensuring the MCL and LCL were protected. Our attention was then turned to the tibia where the navigation pins were placed, navigation was registered. [employer]isel tibial cutting guide was used to make the appropriate tibial cut 90 degrees from the mechanical axis. Navigation was then used to verify the cut. A size 5 tibial base plate was selected. the knee was flexed to 90 degrees and the soft tissues and posterior osteophytes were removed from the joint. 40 cc of the periarticular injection was injected into the posterior medial corner of the joint. The appropriate trials were then placed on the femur and tibia. A trial polyethylene was trialed to ensure proper balancing and stability of the knee. Patella tracking, was then verified and corrected appropriately as needed. The appropriate tibial internal rotation was then marked with a bovie. Our attention was then directed to the patella. The patella was everted and a flat resection was made. The lug holes were drilled and the patella trial was placed. Patellar tracking was checked and deemed appropriate. Once we were happy lug holes were drilled for the femur and trial components were removed. Cement was mixed at this time and the tourniquet was let down the tibia was subluxed and pinned into place and the keel was punched and the canal was reamed. Final components were verified and opened, and cement was mixed in a vacuum. Rotonda West Simplex cement was used. The wound was copiously irrigated with normal saline. When the cement was ready the press-fit components were impacted into place starting with the tibia, femur and finally the patella cemented into place. The trial poly component was placed and the knee was placed in full extension. All excess cement was removed in the process. Once the cement had cured the tracking, alignment and balance were verified and a size 9 mm polyethylene component was placed. Once the final components were placed the wound was copiously irrigated with normal saline solution and the periarticular injection was given. The wound was closed in a layer walker fashion using #1 vicryl interrupted sutures for the arthrotomy, 2-0 interrupted Vicryl suture for the subcuticular layer and lee ann for final skin closure. A sterile compressive dressing was then placed. The patient was then awakened from anesthesia, transferred to the [facility] and transferred to the PACU for recovery. Post op plan DVT ppx: ASA 81mg, thigh high compression stockings Follow up: in office in 2 weeks for wound check PT: to start POD #0 at hospital, outpatient PT should be arranged. Patient will be admitted to the hospital based on his age and medical comorbidities. Grafts/Implants Used: Mikel triathlon total knee replacement - Complications None - Admit VTE Documentation VTE Present on Admission: No VTE Mechan Device Prophylaxis: SCD's, Thigh High TIFFANY Hose VTE Pharm Prophylaxis ordered?: Yes 03/20/18 1238 <Electronically signed by Don Chisholm MD> Date Don Chisholm MD CC: Neil Preciado MD; Don Chisholm MD Signed KNEE 1 OR 2 VIEWS Observed: 03/20/2018 Status: F Source: [place] 12:33 PM [facility] REPOSIT[facility] Imaging Services [address] [place] [address] Knee 1 or 2 Views MR#: [id number] Acct: [id number] Name: CHICA HALEY P Rep #: [id number] : 1940 M 77 From: Darrion Muñoz MD PCP: Neil Preciado MD Status: ADM IN Study: Knee 1 or 2 Views Date of Exam: 03/20/18 Exam# [id number] Ordering Dr: Don Chisholm MD STUDY: X-RAY - LEFT KNEE REASON FOR EXAM: Male, 77 years old. POST OP TECHNIQUE: 2 view(s) of the knee. COMPARISON: None. FINDINGS: There is a left knee arthroplasty in good alignment. The soft tissue structures are unremarkable. RAD/Knee 1 or 2 Views IMPRESSION: There is a left knee arthroplasty in good alignment. Electronically Signed: Darrion Muñoz MD at 13:52 EDT Tel , Service support , CC: Neil Preciado MD; Don Chisholm MD Wedding Transportation Driver: Signed 12 LEAD ELECTROCARDIOGRAM Observed: 03/13/2018 Status: F Source: [place] 8:34 AM [facility] REPOSITORY [facility] Cardiovascular Services [address] [place] [address] EKG - [facility] 03/08/18 1237 MR#: [id number] Acct: [id number] Name: CHICA HALEY P Rep #: [id number] : 1940 77 From: Sim Sanz MD Attending Dr: Don Chisholm MD Status: PRE IN Ordering Dr: Don Chisholm MD Date: 03/08/18 Location: [facility] Sex: M C Admitted: Test Reason : Blood Pressure : / mmHG Vent. Rate : 071 BPM Atrial Rate : 071 BPM P-R Int : 128 ms QRS Dur : 078 ms QT Int : 378 ms P-R-T Axes : 044 027 041 degrees QTc Int : 410 ms Normal sinus rhythm Possible Left atrial enlargement Borderline ECG Confirmed by SIM SANZ MD ([id number]), editorial clerk ISABELL CLEMENTE ([id number]) on 03/13/2018 8:34:15 AM Referred By: Don Chisholm Confirmed By:SIM SANZ MD 03/13/1834 Date Sim Sanz MD CC: Neil Preciado MD; Don Chisholm MD Date Dictated: 03/08/18 1237 Date Transcribed: 03/08/18 123 Wedding Transportation Driver: Signed HISTORY AND PHYSICAL Observed: 03/10/2018 Status: F Source: [place] EXAM 8:48 AM [facility] Medical Records Department [address] [place] [address] History and Physical 03/10/18 0847 MR#: [id number] Acct: [id number] Name: CHICA HALEY Rep #: [id number] : 1940 77 From: Manny Quezada PA-C PCP: Neil Preciado MD Status: PRE IN Y Location: [facility] History and Physical DATE OF SURGERY: 03/20/2018 SCHEDULED PROCEDURE: Left total knee arthroplasty HISTORY OF PRESENT ILLNESS: This is a 77-year-old male who is been having ongoing pain in the left knee for several years duration. Patient has been treated in the past by Dr. Christian Jiménez. Patient states his pain is intermittent and aching. He has increased pain going up and down stairs, walking any amount of distance, and sitting for extended periods of time. Patient has difficult time standing on the leg more than a half hour. Patient states he has tripped/stumbled secondary to his left knee pain. He now does his activities very slowly. He has tried rest, ice, heat, and cortisone injection with minimal relief. Patient recently went on a vacation and had significant increase in pain after walking in sand. He complains of pain over the medial aspect of the knee. He does have start up pain. He does complain of instability. He has tried oral medications consisting of Tylenol, Aleve. Patient has been through physical therapy with minimal relief. He had Euflexxa injections with only 3 months of relief. Patient's last cortisone injection only gave him relief for approximately 6 weeks. Patient currently denies any chest pain, shortness of breath, fevers chills, recent infections. After failing conservative measures and discussing all treatment options with Dr. Don Chisholm, the patient would like proceed with a left total knee arthroplasty. Patient has medical history pertinent for hypertension and previous prostate cancer. He also has gastroesophageal reflux. REVIEW OF SYSTEMS: ROS: Const: Denies change in appetite, fever,or weight change. CV: Denies chest pain, heart murmur and irregular heartbeat. Resp: Denies cough, pneumonia, SOB, tuberculosis and wheezing. GI: Denies constipation, diarrhea, difficulty swallowing, heartburn, nausea, bloody stools and vomiting. : Urinary: denies incontinence. Musculo: Reports limp, but denies leg swelling, trouble walking and weakness. Skin: Denies Raynaud's, history of shingles and tattoo. Neuro: Denies ambulatory dysfunction, dizziness, numbness/tingling and tremor. Psych: Denies anxiety, insomnia and stress. Leobardo/Lymph: Denies anemia, bleeding/bruising tendency and past transfusion. Reviewed, no changes. PAST MEDICAL HISTORY: Advance Care Plan: Other Directive, LIVING WILL Effective Date: 04/11/2017 PMH: Medical Problems: Cancer, Hard of Hearing, High Blood Pressure, Hypercholesterolemia Accidents: Fracture - RT HIP 2015 @[facility] Surgical Hx: Hernia Repair - @[facility] Prostate Surgery - (1998) RT Hip FX - (2014) Bilat CTR - SEVERAL YEARS AGO Carpal Tunnel Release LT, Carpal Tunnel Release RT Laminectomy - (09/07/2016) [email or web address] Anesthesia Complications: None Assistive Devices: Glasses, Hearing Aid Reviewed, no changes. SOCIAL HISTORY: SH: Marital: .Occupation: Retired.Work Status: Retired.Hand Dominance: Right-handed. Personal Habits: Cigarette Use: Former.Alcohol: Daily.Drug Use: Denies Use.Enjoy Exercising: Daily. Reviewed, no changes. VITALS: Ht: 67 Wt: 201lb Wt k.174 BMI: 31.5 BP: 169/72 Pulse: 89 Resp: 16 T: 97.6 T: 36.4C ALLERGIES: No Known Drug Allergy MEDICATIONS: Simvastatin 20 mg 1 by mouth every day, Centrum Silver 1 tab PO daily, Caltrate 600 1500 (600 Ca) MG 2 tabs PO daily, Glucosamine Chondroitin Advanced 2 tabs PO daily, Lisinopril-Hydrochlorothiazide 10-12.5 mg 1 tab PO daily, Omeprazole 20 mg 1 by mouth every day, [place] Aspirin Ec Low Dose 81 mg 1 tab PO daily, Preservision/Lutein 1 cap PO bid, Aleve 220 mg prn PRE-OP EXAM: General appearance:NORMAL Other: Eyes: Conjunctivae and lids: NORMAL Pupils: ERR Ears, Nose, Mouth, and Throat: NORMAL Other: Inspection of lips, teeth and gums: NORMAL Other: Neck: Examination of neck: no masses noted. Respiratory: Assessment of respiratory effort: NORMAL Other: Auscultation of lungs: clear to auscultation no wheezes, rhonchi or rales. Cardiovascular: Auscultation of heart: regular rate and rhythm, no murmurs, gallops or rubs. Exam of carotid arteries: NORMAL Other: Gastrointestinal: Exam of abdomen: soft, nontender, nondistended bowel sounds present. PHYSICAL EXAMINATION: Patient walks with an antalgic gait. Left knee is cool to touch without erythema or signs of infection. Patient does have varus alignment. He has tenderness to palpation of the medial joint line. Range of motion left knee lacks 3 of full extension to 120 of flexion. Stable to varus and valgus stress test. Sensation intact to light touch. Neurovascularly intact. IMAGING STUDIES: X-rays of the left knee reveal varus alignment with medial joint space narrowing, subchondral sclerosis, osteophyte formation consistent with severe tricompartmental osteoarthritis. IMPRESSION: 1. Severe left knee tricompartmental osteoarthritis 2. Hypertension 3. Hypercholesterolemia 4. History of prostate cancer 5. Gastroesophageal reflux disease PLAN: Dr. Chisholm did discuss and review with the patient all treatment options including surgical versus nonsurgical options. Patient does wish to proceed with the above-stated procedure. Potential risks, benefits, and complications of the procedure were discussed in detail including but not limited to , infection, nerve and blood vessel damage, persistent pain, numbness, tingling, paresthesias, blood clot, pulmonary embolism, and requirement for possible further surgery. The patient expressed full understanding and has no further questions for the doctor. Patient does agree to proceed with the above-stated procedure and has signed the surgery consent form. We have obtain surgical clearance from his primary care physician Dr. Edwards. ___ I have re-examined the patient. There are no clinical changes since date of exam. ___ See progress notes for changes. ___ Dictated on admission Date: Time: Signature: 03/10/18 0848 <Electronically signed by Manny Quezada PA-C> Date Manny Quezada PA-C Cosigner Signature: Date (if applicable) CC: Neil Preciado MD; Manny DENISE Signed CBC W/DIFF, AUTOMATED Collected: 03/08/2018 Status: F Source: [place] 1:40 PM [facility] [place] CODE TESTS RESULT OUT OF RANGE REFERENCE UNITS LAB L100.1000 4.4-11.0 K/mm3 Normal WBC 6.8 LAB L100.1200 4.6-6.2 M/mm3 Low RBC 4.18 LAB L100.1300 13.0-16.5 g/dl Low HGB 12.7 LAB L100.1400 40-54 % Low HCT 39.1 LAB L100.1500 80-94 fL Normal MCV 93.5 LAB L100.1600 27.0-32.0 pg Normal MCH 30.4 LAB L100.1700 32-36 g/gl Normal MCHC 32.5 LAB L100.1810 11.6-14.6 % Normal RDW CV 13.8 LAB L100.1820 35.1-43.9 fl High RDW SD 46.6 LAB L100.1900 150-450 K/mm3 Normal PLT 299 LAB L100.2000 6.2-12.0 fl Normal MPV 9.2 LAB L100.2100 47-70 % Normal NEUT% 53.7 LAB L100.2200 19-41 % Normal LY% 33.6 LAB L100.2300 0-10 % High MONO% 10.5 LAB L100.2400 0-5 % Normal EO% 1.8 LAB L100.2500 0-1 % Normal BASO% 0.3 LAB L100.2550 0.0-0.9 % Normal IM GRAN % 0.100 Result Comment: IG% - Immature Granulocytes (promyelocytes, myelocytes and metamyelocytes) > 1% indicates that a LEFT SHIFT is Present. LAB L100.2620 2.0-7.7 X10 3/uL Normal Absolute Neut 3.6 LAB L100.2720 0.83-4.51 X10 3/ul Normal Absolute Lymph 2.27 Performed By: #### L100.0100, M100.651 #### [facility] [address] [facility] [address] Observed: 03/08/2018 Status: F Source: [place] MRSA/SAID SCREEN 1:40 PM [facility] REPOS[facility] MRSA/SAID SCRN S. AUREUS S. aureus Negative MRSA MRSA Negative Performed By: #### L100.0100, M100.651 #### [facility] [address] [place], [address] BASIC METABOLIC Collected: 03/08/2018 Status: F Source: [place] PROFILE (BMP) 1:40 PM [facility] REPOSITORY TYPE CODE TESTS RESULT OUT OF RANGE REFERENCE UNITS LAB L501.0100 74-106 mg/dL Normal GLU 102 Result Comment: Fasting Glucose result from 100 to 125 mg/dL suggests IMPAIRED HOMEOSTASIS per A.D.A. criteria. Please note revised GLUCOSE reference range effective 2017. LAB L501.1000 7-18 mg/dL Normal BUN 14 LAB L501.1100 0.70-1.30 mg/dL Normal CREAT,SERUM 0.98 Result Comment: The validity of the calculated GFR AND GFRAA in patients over 70 years has not been determined. Clinical correlation is essential. LAB L501.1110 >60 mL/min Normal EST GFR 79 Result Comment: Non- GFR Calc LAB L501.1115 >60 mL/min Normal EST GFR - AA 95 Result Comment: GFR Calc LAB L501.1255 ml/min Normal Estimated CRCL 58.08 LAB L501.1300 10-20 RATIO Normal BUN/CRE 14.3 LAB L501.2200 8.5-10 mg/dL Normal .1 CA 8.9 LAB L501.5300 136-14 mmol/L Normal 5 NA 142 LAB L501.5600 3.5-5. mmol/L Normal 1 K 4.0 LAB L501.5900 98-107 mmol/L Normal CL 104 LAB L501.6100 21.0-3 mmol/L Normal 2.0 CO2 30.0 LAB L501.6200 5-15 Normal GAP 8 Performed By: #### L500.2500 #### [facility] [address] [place] [address]. [place], [address] PROGRESS Observed: 03/01/2018 Status: COMPLETED Source: [place] 11:[place] AM [facility] [place] HNO ID: [id number] Author: Karey Preciado Service: (none) Author Type: Physician Type: Progress Notes Filed: 03/03/2018 11:18 AM Note Text: Chief Complaint Patient presents with: pre op clearance HPI Andrés Haley is a 77 year old male who presents here today for eval of preop clearance, L total knee arthroplasty. Chronic knee pain. Unresponsive to conservative treatment. He has had a number of surgeries with general anesthetic. Only complication was hiccups after last anesthetic. 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 Previous Medical History PAST MEDICAL HISTORY Diagnosis Date - High cholesterol - Hypertension - Prostate cancer (HCC) 1998 - Snoring Previous Surgical History PAST SURGICAL HISTORY Procedure Laterality Date - CARPAL TUNNEL Bilateral - HERNIA REPAIR HX - LAMINECTOMY,LUMBAR 09/15/[address] [facility] - RADICAL PROSTATECTOMY - REPAIR ING HERNIA,5+Y/O,REDUCIBL Right - S INSERT PINN METAL NTRL HIP Right 2014 Family History No family history on file. Patient Allergies ALLERGIES No Known Allergies Current Medications Current Outpatient Prescriptions on File Prior to Visit: fluticasone (FLONASE) 50 mcg/actuation nasal spray Use 2 Sprays in each nostril once daily. albuterol HFA (PROAIR HFA) 90 mcg/actuation inhaler Inhale 2 Puffs as instructed every 4 hours as needed for Wheezing/Shortness of Breath (tightness in chest, cough). simvastatin (ZOCOR) 20 mg tablet Take 1 tablet by mouth daily at bedtime. lisinopril-hydrochlorothiazide (PRINZIDE,ZESTORETIC) 10-12.5 mg per tablet Take 1 tablet by mouth once daily. NAPROXEN SODIUM (ALEVE ORAL) Take by mouth. aspirin, enteric coated (ASPIRIN, ENTERIC COATED) 81 mg EC tablet Take 81 mg by mouth once daily. VIT A/C/E AC/ZNOX/CUPRIC OXIDE (EYE VITAMIN AND MINERALS ORAL) Take by mouth. CALCIUM CARBONATE (CALCIUM 300 ORAL) Take 1 tablet by mouth once daily. MULTIVITAMIN W-MINERALS/LUTEIN (CENTRUM SILVER ORAL) Take 1 tablet by mouth. GLUCOSAM SUL NA/CHONDR ORTIZ A NA (GLUCOSAMINE AND CHONDROIT SUL.NA ORAL) Take 2 tablets by mouth once daily. azithromycin (ZITHROMAX Z-JOANA) 250 mg tablet 2 tablets by mouth first day then 1 tablet the next 4 days (Patient not taking: Reported on 03/01/2018 ) No current facility-administered medications on file prior to visit. Social History Social History Marital status: Spouse name: Years of education: Number of children: Social History Main Topics Smoking status: Former Smoker Packs/day: 0.00 Years: 20.00 Smokeless tobacco: Former User Types: Chew Comment: 1 pack every 2 days Alcohol use: Yes 0.6 oz/week Cans of beer: 1 per week Comment: daily Drug use: No ROS: General: Feels well, no weight changes, fever, chills. HEENT: No sinus congestion, earache, sore throat. Cardiac: No chest pain, palpitations, shortness of breath Resp: No cough, wheeze. GI: No reflux symptoms, food intolerance, bowel changes. : No urinary frequency, dysuria. MS: No pain or joint complaints. PHYSICAL EXAMINATION BP 132/59 (BP Site: Left Arm, BP Position: Sitting, BP Cuff Size: Regular Adult) Pulse 87 Temp 36.7 ?C (98.1 ?F) Resp 17 Ht 177.8 cm (5' 10) Wt 89.1 kg (196 lb 6.4 oz) SpO2 97% BMI 28.18 kg/m? General: Alert and oriented, no distress, pleasant and cooperative. Heart: Regular, normal S1 and S2, no murmurs, rubs, or gallops Lungs: Clear to auscultation bilaterally Abdomen: Benign Extremities: Feet/ankles without edema, posterior tibial pulses full and symmetrical Health Maintenance List BP CONTROLLED (<130/80) due on 1957 INFLUENZA(1) due on 02/16/2018 COLORECTAL CANCER SCREENING,SEE MODIFIER due on 06/06/2018 ANNUAL PCP TEAM CHRONIC DISEASE VISIT due on 11/02/2018 DIABETES SCREEN due on 09/12/2020 LIPID SCREEN due on 09/12/2022 DTAP,TDAP,TD(2 - Td) due on 07/19/2027 ADULT PREVNAR-13 Completed PNEUMOVAX AGE 65 AND OVER WITH 5YR LOOKBACK Completed Data reviewed EKG from last year, lab work. Assessment/Plan: (M17.12) Primary localized osteoarthrosis of left lower leg (primary encounter diagnosis) Comment: he is a surgical candidate. Plan: he has advise the anesthesiologist about the hiccups after the last anesthetic. (C61) Prostate cancer (HCC) Comment: status quo Plan: (I10) Essential hypertension Comment: adequate control for age. Plan: continue regimen (H35.3220) Exudative age-related macular degeneration of left eye, unspecified stage (HCC) Comment: Plan: noted, ongoing ophthalmology care. (Z01.818) Preoperative clearance Comment: Plan: preop clearance, presuming he has his PAT done. (K21.9) Gastroesophageal reflux disease, esophagitis presence not specified Comment: Plan: Prilosec, noted for record. No medications selected for refill. RTO: routine follow-up Karey Preciado MD CNOV Observed: 03/01/2018 Status: COMPLETED Source: [place] 11:[place] AM [facility] [place] Visit (FPWADS) ANDRÉS HALEY ([id number]) 1940 M Date Time Provider Department 03/01/18 11:00 AM KAREY PRECIADO During your visit today, we recorded the following information about you: Temperature Pulse Respiration Blood pressure 98.1 degrees 87/minute 17/minute 132/59 Weight Height 89.1 kg 1.778 m Karey Preciado MD 03/03/2018 11:18 AM Signed Chief Complaint Patient presents with: pre op clearance HPI Andrés Haley is a 77 year old male who presents here today for eval of preop clearance, L total knee arthroplasty. Chronic knee pain. Unresponsive to conservative treatment. He has had a number of surgeries with general anesthetic. Only complication was hiccups after last anesthetic. 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 Previous Medical History PAST MEDICAL HISTORY Diagnosis Date - High cholesterol - Hypertension - Prostate cancer (HCC) 1998 - Snoring Previous Surgical History PAST SURGICAL HISTORY Procedure Laterality Date - CARPAL TUNNEL Bilateral - HERNIA REPAIR HX - LAMINECTOMY,LUMBAR 09/15/[address] [facility] - RADICAL PROSTATECTOMY - REPAIR ING HERNIA,5+Y/O,REDUCIBL Right - S INSERT PINN METAL NTRL HIP Right 2014 Family History No family history on file. Patient Allergies ALLERGIES No Known Allergies Current Medications Current Outpatient Prescriptions on File Prior to Visit: fluticasone (FLONASE) 50 mcg/actuation nasal spray Use 2 Sprays in each nostril once daily. albuterol HFA (PROAIR HFA) 90 mcg/actuation inhaler Inhale 2 Puffs as instructed every 4 hours as needed for Wheezing/Shortness of Breath (tightness in chest, cough). simvastatin (ZOCOR) 20 mg tablet Take 1 tablet by mouth daily at bedtime. lisinopril-hydrochlorothiazide (PRINZIDE,ZESTORETIC) 10-12.5 mg per tablet Take 1 tablet by mouth once daily. NAPROXEN SODIUM (ALEVE ORAL) Take by mouth. aspirin, enteric coated (ASPIRIN, ENTERIC COATED) 81 mg EC tablet Take 81 mg by mouth once daily. VIT A/C/E AC/ZNOX/CUPRIC OXIDE (EYE VITAMIN AND MINERALS ORAL) Take by mouth. CALCIUM CARBONATE (CALCIUM 300 ORAL) Take 1 tablet by mouth once daily. MULTIVITAMIN W-MINERALS/LUTEIN (CENTRUM SILVER ORAL) Take 1 tablet by mouth. GLUCOSAM SUL NA/CHONDR ORTIZ A NA (GLUCOSAMINE AND CHONDROIT SUL.NA ORAL) Take 2 tablets by mouth once daily. azithromycin (ZITHROMAX Z-JOANA) 250 mg tablet 2 tablets by mouth first day then 1 tablet the next 4 days (Patient not taking: Reported on 03/01/2018 ) No current facility-administered medications on file prior to visit. Social History Social History Marital status: Spouse name: Years of education: Number of children: Social History Main Topics Smoking status: Former Smoker Packs/day: 0.00 Years: 20.00 Smokeless tobacco: Former User Types: Chew Comment: 1 pack every 2 days Alcohol use: Yes 0.6 oz/week Cans of beer: 1 per week Comment: daily Drug use: No ROS: General: Feels well, no weight changes, fever, chills. HEENT: No sinus congestion, earache, sore throat. Cardiac: No chest pain, palpitations, shortness of breath Resp: No cough, wheeze. GI: No reflux symptoms, food intolerance, bowel changes. : No urinary frequency, dysuria. MS: No pain or joint complaints. PHYSICAL EXAMINATION BP 132/59 (BP Site: Left Arm, BP Position: Sitting, BP Cuff Size: Regular Adult) Pulse 87 Temp 36.7 ?C (98.1 ?F) Resp 17 Ht 177.8 cm (5' 10) Wt 89.1 kg (196 lb 6.4 oz) SpO2 97% BMI 28.18 kg/m? General: Alert and oriented, no distress, pleasant and cooperative. Heart: Regular, normal S1 and S2, no murmurs, rubs, or gallops Lungs: Clear to auscultation bilaterally Abdomen: Benign Extremities: Feet/ankles without edema, posterior tibial pulses full and symmetrical Health Maintenance List BP CONTROLLED (<130/80) due on 1957 INFLUENZA(1) due on 02/16/2018 COLORECTAL CANCER SCREENING,SEE MODIFIER due on 06/06/2018 ANNUAL PCP TEAM CHRONIC DISEASE VISIT due on 11/02/2018 DIABETES SCREEN due on 09/12/2020 LIPID SCREEN due on 09/12/2022 DTAP,TDAP,TD(2 - Td) due on 07/19/2027 ADULT PREVNAR-13 Completed PNEUMOVAX AGE 65 AND OVER WITH 5YR LOOKBACK Completed Data reviewed EKG from last year, lab work. Assessment/Plan: (M17.12) Primary localized osteoarthrosis of left lower leg (primary encounter diagnosis) Comment: he is a surgical candidate. Plan: he has advise the anesthesiologist about the hiccups after the last anesthetic. (C61) Prostate cancer (HCC) Comment: status quo Plan: (I10) Essential hypertension Comment: adequate control for age. Plan: continue regimen (H35.3220) Exudative age-related macular degeneration of left eye, unspecified stage (HCC) Comment: Plan: noted, ongoing ophthalmology care. (Z01.818) Preoperative clearance Comment: Plan: preop clearance, presuming he has his PAT done. (K21.9) Gastroesophageal reflux disease, esophagitis presence not specified Comment: Plan: Prilosec, noted for record. No medications selected for refill. RTO: routine follow-up Karey Preciado MD Referring Provider: SELF [[id number]] Allergies As of Date: 03/01/2018 (No Known Allergies) Date Reviewed: 03/01/2018 Reviewed by: Mckenzie Moralez Ma - Fully Assessed Reason for Visit: pre op clearance [Other] Primary Visit Diagnosis:Primary localized osteoarthrosis of left lower leg [M17.12] Other Visit Diagnoses:Prostate cancer (HCC) [C61] Essential hypertension [I10] Exudative age-related macular degeneration of left eye, unspecified stage ([facility]) [H35.3220] Preoperative clearance [Z01.818] Gastroesophageal reflux disease, esophagitis presence not specified [K21.9] Prescriptions as of 03/01/2018 Sig: OMEPRAZOLE 20 MG CAPSULE,URIEL* Take 20 mg by mouth once khari* FLUTICASONE 50 MCG/ACTUATION * Use 2 Sprays in each nostril * ALBUTEROL SULFATE HFA 90 MCG/* Inhale 2 Puffs as instructed * SIMVASTATIN 20 MG TABLET Take 1 tablet by mouth daily * LISINOPRIL 10 MG-HYDROCHLOROT* Take 1 tablet by mouth once d* ALEVE ORAL Take by mouth. ASPIRIN 81 MG TABLET,DELAYED * Take 81 mg by mouth once khari* EYE VITAMIN AND MINERALS ORAL Take by mouth. * CALCIUM 300 ORAL Take 1 tablet by mouth once d* * CENTRUM SILVER ORAL Take 1 tablet by mouth. * GLUCOSAMINE AND CHONDROIT SUL.N* Take 2 tablets by mouth once * Problem List As Of Date 03/01/2018 Noted Resolved Lumbosacral spondylosis without myelopathy [M47*INVALID FOR* Degeneration of lumbar or lumbosacral intervert*INVALID FOR* Prostate cancer (HCC) [C61] INVALID FOR* Exudative age-related macular degeneration of l*INVALID FOR* Essential hypertension [I10] INVALID FOR* Medications Discontinued During This Encounter azithromycin (ZITHROMAX Z-JOANA) 250 m* 1 Pa* 0 02/19/2018 03/01/2018 Si tablets by mouth first day then 1 tablet the next 4 days Patient not taking: Reported on 03/01/2018 Disc: Reason for discontinue is not on file. Encounter Status:Closed by NEIL PRECIADO MD on 03/03/18 [place] Observed: 02/21/2018 Status: COMPLETED Source: [place] 12:00 AM [facility] [place] Telephone (FPWADS) ANDRÉS HALEY ([id number]) 1940 M Date Time Provider Department 02/21/18 KAREY PRECIADO During your visit today, we recorded the following information about you: Reshma Tomlin Ma 02/21/2018 2:00 PM Signed Received request for surgical clearance from [facility] for left total knee arthroplasty. Last labs done outside of [facility] 09/12/17- scanned in chart. Has labs on order currently. Last ECG done 08/28/16- scanned in to chart. Last office visit 11/02/17. Paperwork placed on PCP's desk Reshma Tomlin Ma 02/21/2018 3:19 PM Signed There is an open [employer] message from today that can be used to send the reply from this tele enc. Karey Preciado MD 02/25/2018 2:56 PM Signed The schedule appointment for preop clearance. MD Reshma Garcia Ma 02/25/2018 3:48 PM Signed appt scheduled for 03/01/18 Keith Velázquez 02/26/2018 5:24 PM Signed Preop clearance forms placed at desk until apt on 03/01 for completion. Reshma Tomlin Ma 03/04/2018 10:12 AM Signed Forms have been completed and faxed along with other pertinent information to . Allergies As of Date: 02/21/2018 (No Known Allergies) Date Reviewed: 02/19/2018 Reviewed by: Allyn Crane - Fully Assessed Reason for Visit: Pre-Op Clearance Form [Other] [facility] Recorded Prescriptions as of 02/21/2018 Sig: FLUTICASONE 50 MCG/ACTUATION * Use 2 Sprays in each nostril * ALBUTEROL SULFATE HFA 90 MCG/* Inhale 2 Puffs as instructed * X AZITHROMYCIN 250 MG TABLET 2 tablets by mouth first day * Patient not taking: Reported on 03/01/2018 SIMVASTATIN 20 MG TABLET Take 1 tablet by mouth daily * LISINOPRIL 10 MG-HYDROCHLOROT* Take 1 tablet by mouth once d* ALEVE ORAL Take by mouth. ASPIRIN 81 MG TABLET,DELAYED * Take 81 mg by mouth once khari* EYE VITAMIN AND MINERALS ORAL Take by mouth. * CALCIUM 300 ORAL Take 1 tablet by mouth once d* * CENTRUM SILVER ORAL Take 1 tablet by mouth. * GLUCOSAMINE AND CHONDROIT SUL.N* Take 2 tablets by mouth once * Problem List As Of Date 02/21/2018 Noted Resolved Lumbosacral spondylosis without myelopathy [M47*INVALID FOR* Degeneration of lumbar or lumbosacral intervert*INVALID FOR* Prostate cancer (HCC) [C61] INVALID FOR* Exudative age-related macular degeneration of l*INVALID FOR* Essential hypertension [I10] INVALID FOR* Encounter Status:Closed by RESHMA TOMLIN MA on 02/25/18 PROGRESS Observed: 02/19/2018 Status: COMPLETED Source: [place] 11:11 AM [facility] HNO ID: [id number] Author: Allyn Crane Service: (none) Author Type: Nurse Practitioner Type: Progress Notes Filed: 02/20/2018 6:48 AM Note Text: 02/19/2018 Patient presents with: Chest Congestion: chest congestion X 1 week, sinus pressure SUBJECTIVE: This is a 77 year old male that is here today for acute onset of chest congestion, sinus congestion, post nasal drainage, rhinorrhea, posterior head pressure, fronto temporal head pressure, shortness of breath, tightness in chest, lightheadedness, dizziness, fever for 1 week. Patient rates pain at 7 on Numerical pain scale. Patient has been taking coricidin, claritin with minimal relief of symptoms. The severity is mild and the symptoms are not improving. The patient did not have a similar problem in the last 3 months. The patient did not take any antibiotics in the last 3 months. Patient has been exposed to sick contacts. Patient denies recent travel. Pertinent medical history PAST MEDICAL HISTORY Diagnosis Date - High cholesterol - Hypertension - Prostate cancer (HCC) 1998 - Snoring ALLERGIES Patient has no known allergies. MEDICATIONS Current Outpatient Prescriptions: simvastatin (ZOCOR) 20 mg tablet Take 1 tablet by mouth daily at bedtime. lisinopril-hydrochlorothiazide (PRINZIDE,ZESTORETIC) 10-12.5 mg per tablet Take 1 tablet by mouth once daily. NAPROXEN SODIUM (ALEVE ORAL) Take by mouth. aspirin, enteric coated (ASPIRIN, ENTERIC COATED) 81 mg EC tablet Take 81 mg by mouth once daily. VIT A/C/E AC/ZNOX/CUPRIC OXIDE (EYE VITAMIN AND MINERALS ORAL) Take by mouth. CALCIUM CARBONATE (CALCIUM 300 ORAL) Take 1 tablet by mouth once daily. MULTIVITAMIN W-MINERALS/LUTEIN (CENTRUM SILVER ORAL) Take 1 tablet by mouth. GLUCOSAM SUL NA/CHONDR ORTIZ A NA (GLUCOSAMINE AND CHONDROIT SUL.NA ORAL) Take 2 tablets by mouth once daily. azithromycin (ZITHROMAX Z-JOANA) 250 mg tablet 2 tablets by mouth first day then 1 tablet the next 4 days fluticasone (FLONASE) 50 mcg/actuation nasal spray Use 2 Sprays in each nostril once daily. albuterol HFA (PROAIR HFA) 90 mcg/actuation inhaler Inhale 2 Puffs as instructed every 4 hours as needed for Wheezing/Shortness of Breath (tightness in chest, cough). No current facility-administered medications for this visit. SOCIAL HISTORY Social History Marital status: Spouse name: Years of education: Number of children: Social History Main Topics Smoking status: Former Smoker Packs/day: 0.00 Years: 20.00 Smokeless tobacco: Former User Types: Chew Comment: 1 pack every 2 days Alcohol use: Yes 0.6 oz/week Cans of beer: 1 per week Comment: daily Drug use: No REVIEW OF SYSTEMS Review of Systems Constitutional: Negative for chills, diaphoresis, fatigue and fever. HENT: Positive for congestion, postnasal drip and rhinorrhea. Negative for ear pain, sinus pain, sinus pressure and sore throat. Respiratory: Positive for cough, chest tightness and shortness of breath. Negative for wheezing. Cardiovascular: Negative for chest pain and palpitations. Gastrointestinal: Negative for abdominal pain, diarrhea, nausea and vomiting. Skin: Negative for rash. Neurological: Positive for dizziness, light-headedness and headaches. OBJECTIVE: BP 169/76 Pulse 92 Temp 36.9 ?C (98.4 ?F) (Oral) Wt 91.6 kg (202 lb) SpO2 97% BMI 28.98 kg/m? Physical Exam Constitutional: He is oriented to person, place, and time. Vital signs are normal. He appears well-developed and well-nourished. Non-toxic appearance. HENT: Head: Normocephalic and atraumatic. Right Ear: External ear and ear canal normal. A middle ear effusion is present. Left Ear: External ear and ear canal normal. A middle ear effusion is present. Nose: Mucosal edema present. Mouth/Throat: Uvula is midline and mucous membranes are normal. Posterior oropharyngeal erythema present. Neck: Normal range of motion. Cardiovascular: Normal rate, regular rhythm and normal heart sounds. Pulmonary/Chest: Effort normal. He has decreased breath sounds in the right lower field and the left lower field. He has rhonchi in the right upper field, the right middle field and the left upper field. Neb albuterol given in clinic. Breath sounds after treatment: improved air exchange throughout, end expiratory wheezes, patient reports improved ability to breathe. Lymphadenopathy: He has no cervical adenopathy. He has no axillary adenopathy. Neurological: He is alert and oriented to person, place, and time. Skin: Skin is warm, dry and intact. Nursing note and vitals reviewed. ASSESSMENT/PLAN: 1. Sinobronchitis - ICD9: 473.9, 490, ICD10: J32.9, J40 - Will begin treatment with Zithromax pack as directed - Supportive care with plenty of fluids, rest, and analgesia prn. - Follow up in 3-5 days if symptoms persist or worsen. - AZITHROMYCIN 250 MG TABLET - eat first - FLUTICASONE 50 MCG/ACTUATION NASAL SPRAY,SUSPENSION - angle tip to ears - ALBUTEROL SULFATE HFA 90 MCG/ACTUATION AEROSOL INHALER Allyn Crane APRN.CLOUD ENGINEER CNOV Observed: 02/19/2018 Status: COMPLETED Source: [place] 10[place] [facility] [place] Visit (ALEXANDRU) ANDRÉS HALEY ([id number]) 1940 M Date Time Provider Department 02/19/18 10:30 AM ALLYN CRANE During your visit today, we recorded the following information about you: Temperature Pulse Blood pressure Weight 98.4 degrees 92/minute 169/76 91.6 kg Allyn Crane APRN.CNP 02/19/2018 11:10 AM Addendum ASSESSMENT/PLAN: 1. Sinobronchitis - ICD9: 473.9, 490, ICD10: J32.9, J40 - Will begin treatment with Zithromax pack as directed - Supportive care with plenty of fluids, rest, and analgesia prn. - Follow up in 3-5 days if symptoms persist or worsen. - AZITHROMYCIN 250 MG TABLET - eat first - FLUTICASONE 50 MCG/ACTUATION NASAL SPRAY,SUSPENSION - angle tip to ears - ALBUTEROL SULFATE HFA 90 MCG/ACTUATION AEROSOL INHALER POOJA Rubio APRN.CNP 02/20/2018 6:48 AM Signed 02/19/2018 Patient presents with: Chest Congestion: chest congestion X 1 week, sinus pressure SUBJECTIVE: This is a 77 year old male that is here today for acute onset of chest congestion, sinus congestion, post nasal drainage, rhinorrhea, posterior head pressure, fronto temporal head pressure, shortness of breath, tightness in chest, lightheadedness, dizziness, fever for 1 week. Patient rates pain at 7 on Numerical pain scale. Patient has been taking coricidin, claritin with minimal relief of symptoms. The severity is mild and the symptoms are not improving. The patient did not have a similar problem in the last 3 months. The patient did not take any antibiotics in the last 3 months. Patient has been exposed to sick contacts. Patient denies recent travel. Pertinent medical history PAST MEDICAL HISTORY Diagnosis Date - High cholesterol - Hypertension - Prostate cancer (HCC) 1998 - Snoring ALLERGIES Patient has no known allergies. MEDICATIONS Current Outpatient Prescriptions: simvastatin (ZOCOR) 20 mg tablet Take 1 tablet by mouth daily at bedtime. lisinopril-hydrochlorothiazide (PRINZIDE,ZESTORETIC) 10-12.5 mg per tablet Take 1 tablet by mouth once daily. NAPROXEN SODIUM (ALEVE ORAL) Take by mouth. aspirin, enteric coated (ASPIRIN, ENTERIC COATED) 81 mg EC tablet Take 81 mg by mouth once daily. VIT A/C/E AC/ZNOX/CUPRIC OXIDE (EYE VITAMIN AND MINERALS ORAL) Take by mouth. CALCIUM CARBONATE (CALCIUM 300 ORAL) Take 1 tablet by mouth once daily. MULTIVITAMIN W-MINERALS/LUTEIN (CENTRUM SILVER ORAL) Take 1 tablet by mouth. GLUCOSAM SUL NA/CHONDR ORTIZ A NA (GLUCOSAMINE AND CHONDROIT SUL.NA ORAL) Take 2 tablets by mouth once daily. azithromycin (ZITHROMAX Z-JOANA) 250 mg tablet 2 tablets by mouth first day then 1 tablet the next 4 days fluticasone (FLONASE) 50 mcg/actuation nasal spray Use 2 Sprays in each nostril once daily. albuterol HFA (PROAIR HFA) 90 mcg/actuation inhaler Inhale 2 Puffs as instructed every 4 hours as needed for Wheezing/Shortness of Breath (tightness in chest, cough). No current facility-administered medications for this visit. SOCIAL HISTORY Social History Marital status: Spouse name: Years of education: Number of children: Social History Main Topics Smoking status: Former Smoker Packs/day: 0.00 Years: 20.00 Smokeless tobacco: Former User Types: Chew Comment: 1 pack every 2 days Alcohol use: Yes 0.6 oz/week Cans of beer: 1 per week Comment: daily Drug use: No REVIEW OF SYSTEMS Review of Systems Constitutional: Negative for chills, diaphoresis, fatigue and fever. HENT: Positive for congestion, postnasal drip and rhinorrhea. Negative for ear pain, sinus pain, sinus pressure and sore throat. Respiratory: Positive for cough, chest tightness and shortness of breath. Negative for wheezing. Cardiovascular: Negative for chest pain and palpitations. Gastrointestinal: Negative for abdominal pain, diarrhea, nausea and vomiting. Skin: Negative for rash. Neurological: Positive for dizziness, light-headedness and headaches. OBJECTIVE: BP 169/76 Pulse 92 Temp 36.9 ?C (98.4 ?F) (Oral) Wt 91.6 kg (202 lb) SpO2 97% BMI 28.98 kg/m? Physical Exam Constitutional: He is oriented to person, place, and time. Vital signs are normal. He appears well-developed and well-nourished. Non- toxic appearance. HENT: Head: Normocephalic and atraumatic. Right Ear: External ear and ear canal normal. A middle ear effusion is present. Left Ear: External ear and ear canal normal. A middle ear effusion is present. Nose: Mucosal edema present. Mouth/Throat: Uvula is midline and mucous membranes are normal. Posterior oropharyngeal erythema present. Neck: Normal range of motion. Cardiovascular: Normal rate, regular rhythm and normal heart sounds. Pulmonary/Chest: Effort normal. He has decreased breath sounds in the right lower field and the left lower field. He has rhonchi in the right upper field, the right middle field and the left upper field. Neb albuterol given in clinic. Breath sounds after treatment: improved air exchange throughout, end expiratory wheezes, patient reports improved ability to breathe. Lymphadenopathy: He has no cervical adenopathy. He has no axillary adenopathy. Neurological: He is alert and oriented to person, place, and time. Skin: Skin is warm, dry and intact. Nursing note and vitals reviewed. ASSESSMENT/PLAN: 1. Sinobronchitis - ICD9: 473.9, 490, ICD10: J32.9, J40 - Will begin treatment with Zithromax pack as directed - Supportive care with plenty of fluids, rest, and analgesia prn. - Follow up in 3-5 days if symptoms persist or worsen. - AZITHROMYCIN 250 MG TABLET - eat first - FLUTICASONE 50 MCG/ACTUATION NASAL SPRAY,SUSPENSION - angle tip to ears - ALBUTEROL SULFATE HFA 90 MCG/ACTUATION AEROSOL INHALER Allyn Crane, TECHNOLOGY AUDITOR.CLOUD ENGINEER Referring Provider: SELF [200] Allergies As of Date: 02/19/2018 (No Known Allergies) Date Reviewed: 02/19/2018 Reviewed by: Allyn Crane - Fully Assessed Reason for Visit: Chest Congestion [236] Cmt: chest congestion X 1 week, sinus pressure Primary Visit Diagnosis:Sinobronchitis [J32.9, J40] Order(s):azithromycin (ZITHROMAX Z-JOANA) 250 mg tablet2 tablets by mouth first day then 1 tablet the next 4 daysDisp: 1 PackageRfl: 0 fluticasone (FLONASE) 50 mcg/actuation nasal sprayUse 2 Sprays in each nostril once daily.Disp: 1 BottleRfl: 0 albuterol HFA (PROAIR HFA) 90 mcg/actuation inhalerInhale 2 Puffs as instructed every 4 hours as needed for Wheezing/Shortness of Breath (tightness in chest, cough).Disp: 1 InhalerRfl: 0 Prescriptions as of 02/19/2018 Sig: SIMVASTATIN 20 MG TABLET Take 1 tablet by mouth daily * LISINOPRIL 10 MG-HYDROCHLOROT* Take 1 tablet by mouth once d* ALEVE ORAL Take by mouth. ASPIRIN 81 MG TABLET,DELAYED * Take 81 mg by mouth once khari* EYE VITAMIN AND MINERALS ORAL Take by mouth. * CALCIUM 300 ORAL Take 1 tablet by mouth once d* * CENTRUM SILVER ORAL Take 1 tablet by mouth. * GLUCOSAMINE AND CHONDROIT SUL.N* Take 2 tablets by mouth once * AZITHROMYCIN 250 MG TABLET 2 tablets by mouth first day * FLUTICASONE 50 MCG/ACTUATION * Use 2 Sprays in each nostril * ALBUTEROL SULFATE HFA 90 MCG/* Inhale 2 Puffs as instructed * Problem List As Of Date 02/19/2018 Noted Resolved Lumbosacral spondylosis without myelopathy [M47*INVALID FOR* Degeneration of lumbar or lumbosacral intervert*INVALID FOR* Prostate cancer (HCC) [C61] INVALID FOR* Exudative age-related macular degeneration of l*INVALID FOR* Essential hypertension [I10] INVALID FOR* Other instructions from your clinician: ASSESSMENT/PLAN: 1. Sinobronchitis - ICD9: 473.9, 490, ICD10: J32.9, J40 - Will begin treatment with Zithromax pack as directed - Supportive care with plenty of fluids, rest, and analgesia prn. - Follow up in 3-5 days if symptoms persist or worsen. - AZITHROMYCIN 250 MG TABLET - eat first - FLUTICASONE 50 MCG/ACTUATION NASAL SPRAY,SUSPENSION - angle tip to ears - ALBUTEROL SULFATE HFA 90 MCG/ACTUATION AEROSOL INHALER Allyn Crane, TECHNOLOGY AUDITOR.CLOUD ENGINEER Prescriptions ordered this encounter Disp Refills Start End AZITHROMYCIN 250 MG TABLET 1 Pa* 0 02/19/2018 Si tablets by mouth first day then 1 tablet the next 4 days FLUTICASONE 50 MCG/ACTUATION NASAL S* 1 Aaron* 0 02/19/2018 Route: EACH NOSTRIL Sig: Use 2 Sprays in each nostril once daily. ALBUTEROL SULFATE HFA 90 MCG/ACTUATI* 1 In* 0 02/19/2018 Route: INHALATION Sig: Inhale 2 Puffs as instructed every 4 hours as needed for Wheezing/Shortness of Breath (tightness in chest, cough). Encounter Status:Closed by ALLYN CRANE on 02/20/18 PROGRESS Observed: 11/02/2017 Status: COMPLETED Source: [place] 10:21 AM [facility] O ID: [id number] Author: Karey Preciado Service: (none) Author Type: Physician Type: Progress Notes Filed: 11/04/2017 8:14 AM Note Text: Chief Complaint Patient presents with: Establish Care Physical HPI Andrés Haley is a 77 year old male who presents here today for to transfer care. Dr. Mc no longer available . HTN. Controlled , past few years. Hyperlipidemia. Simvastatin. Prostate cancer , s/p prostatectomy. Lumbar disc . Surgery last year ACTIVE PROBLEM LIST Lumbosacral Spondylosis Without Myelopathy Degeneration of Lumbar Or Lumbosacral Intervertebral Disc Past medical history, appointments, medications, allergies reviewed. Previous Medical History PAST MEDICAL HISTORY Diagnosis Date - High cholesterol - Hypertension - Prostate cancer (HCC) 1998 - Snoring Previous Surgical History PAST SURGICAL HISTORY Procedure Laterality Date - HERNIA REPAIR HX Family History No family history on file. Patient Allergies ALLERGIES No Known Allergies Current Medications Current Outpatient Prescriptions on File Prior to Visit: NAPROXEN SODIUM (ALEVE ORAL) Take by mouth. aspirin, enteric coated (ASPIRIN, ENTERIC COATED) 81 mg EC tablet Take 81 mg by mouth once daily. VIT A/C/E AC/ZNOX/CUPRIC OXIDE (EYE VITAMIN AND MINERALS ORAL) Take by mouth. omeprazole (PRILOSEC) 20 mg capsule Take 20 mg by mouth once daily. simvastatin 10 mg tablet Take 10 mg by mouth daily at bedtime. lisinopril-hydrochlorothiazide 10-12.5 mg per tablet Take 1 tablet by mouth once daily. CALCIUM CARBONATE (CALCIUM 300 ORAL) Take 1 tablet by mouth once daily. MULTIVITAMIN W-MINERALS/LUTEIN (CENTRUM SILVER ORAL) Take 1 tablet by mouth. GLUCOSAM SUL NA/CHONDR ORTIZ A NA (GLUCOSAMINE AND CHONDROIT SUL.NA ORAL) Take 2 tablets by mouth once daily. No current facility-administered medications on file prior to visit. Social History Social History Marital status: Spouse name: Years of education: Number of children: Social History Main Topics Smoking status: Former Smoker Packs/day: 0.00 Years: 20.00 Smokeless tobacco: Former User Types: Chew Comment: 1 pack every 2 days Alcohol use: Yes 0.6 oz/week Cans of beer: 1 per week Comment: daily Drug use: No ROS: General: Feels well, no weight changes, fever, chills. HEENT: No sinus congestion, earache, sore throat. Cardiac: No chest pain, palpitations, shortness of breath Resp: No cough, wheeze. GI: No reflux symptoms, food intolerance, bowel changes. : No urinary frequency, dysuria. MS: No pain or joint complaints. PHYSICAL EXAMINATION BP 137/62 Pulse 70 Temp 36.6 ?C (97.9 ?F) Resp 18 Ht 177.8 cm (5' 10) Wt 91.2 kg (201 lb) SpO2 98% BMI 28.84 kg/m? General: Alert and oriented, no distress, pleasant and cooperative. Heart: Regular, normal S1 and S2, no murmurs, rubs, or gallops Lungs: Clear to auscultation bilaterally Abdomen: Benign Extremities: Feet/ankles without edema, posterior tibial pulses full and symmetrical Multiple scattered actinic keratoses. Health Maintenance List LIPID SCREEN due on 1974 PROSTATE CANCER SCREENING DISCUSSION due on 1989 PNEUMOVAX AGE 65 AND OVER WITH 5YR LOOKBACK(1) due on 2004 COLORECTAL CANCER SCREENING,SEE MODIFIER due on 06/06/2018 DIABETES SCREEN due on 01/31/2018 INFLUENZA(Season Ended) due on 02/16/2018 DTAP,TDAP,TD(2 - Td) due on 07/19/2027 ADULT PREVNAR-13 Completed Data reviewed No results found for: CHOL, HDL, LDL, TRIG, HBA1C, TSH, PSA, GLU Outside labs reviewed. Assessment/Plan: (M47.817) Lumbosacral spondylosis without myelopathy (primary encounter diagnosis) Comment: chronic back pain Plan: No orders. (M51.37) Degeneration of lumbar or lumbosacral intervertebral disc Comment: Plan: update (H35.4240) Exudative age-related macular degeneration of left eye, unspecified stage (HCC) Comment: noted for record. Plan: continue with the ophth. (E78.2) Hyperlipidemia, mixed Comment: on Rx Plan: continue (C61) Prostate cancer (HCC) Comment: history Plan: surveillance (I10) Essential hypertension Comment: adequate control Plan: continue (L57.0, X32.XXXA) Solar keratosis Comment: noted Plan: derm / Signed Prescriptions Disp Refills lisinopril-hydrochlorothiazide (PRINZIDE,ZESTORETIC) 10-12.5 mg per tablet 90 tablet 3 Sig: Take 1 tablet by mouth once daily. MICHI: No simvastatin (ZOCOR) 10 mg tablet 90 tablet 3 Sig: Take 1 tablet by mouth daily at bedtime. For cholesterols. RTO: Karey Preciado MD CNOV Observed: 11/02/2017 Status: COMPLETED Source: [place] 10:[place] [facility] [place] Visit ([place]) DEANDREANDRÉS MARTEL ([id number]) 1940 M Date Time Provider Department 11/02/17 10:00 AM KAREY PRECIADO OTILIA During your visit today, we recorded the following information about you: Temperature Pulse Respiration Blood pressure 97.9 degrees 70/minute 18/minute 137/62 Weight Height 91.2 kg 1.778 m Karey Preciado MD 11/04/2017 8:14 AM Signed Chief Complaint Patient presents with: Establish Care Physical HPI Andréslisa Haley is a 77 year old male who presents here today for to transfer care. Dr. Mc no longer available . HTN. Controlled , past few years. Hyperlipidemia. Simvastatin. Prostate cancer , s/p prostatectomy. Lumbar disc . Surgery last year ACTIVE PROBLEM LIST Lumbosacral Spondylosis Without Myelopathy Degeneration of Lumbar Or Lumbosacral Intervertebral Disc Past medical history, appointments, medications, allergies reviewed. Previous Medical History PAST MEDICAL HISTORY Diagnosis Date - High cholesterol - Hypertension - Prostate cancer (HCC) 1998 - Snoring Previous Surgical History PAST SURGICAL HISTORY Procedure Laterality Date - HERNIA REPAIR HX Family History No family history on file. Patient Allergies ALLERGIES No Known Allergies Current Medications Current Outpatient Prescriptions on File Prior to Visit: NAPROXEN SODIUM (ALEVE ORAL) Take by mouth. aspirin, enteric coated (ASPIRIN, ENTERIC COATED) 81 mg EC tablet Take 81 mg by mouth once daily. VIT A/C/E AC/ZNOX/CUPRIC OXIDE (EYE VITAMIN AND MINERALS ORAL) Take by mouth. omeprazole (PRILOSEC) 20 mg capsule Take 20 mg by mouth once daily. simvastatin 10 mg tablet Take 10 mg by mouth daily at bedtime. lisinopril-hydrochlorothiazide 10-12.5 mg per tablet Take 1 tablet by mouth once daily. CALCIUM CARBONATE (CALCIUM 300 ORAL) Take 1 tablet by mouth once daily. MULTIVITAMIN W-MINERALS/LUTEIN (CENTRUM SILVER ORAL) Take 1 tablet by mouth. GLUCOSAM SUL NA/CHONDR ORTIZ A NA (GLUCOSAMINE AND CHONDROIT SUL.NA ORAL) Take 2 tablets by mouth once daily. No current facility-administered medications on file prior to visit. Social History Social History Marital status: Spouse name: Years of education: Number of children: Social History Main Topics Smoking status: Former Smoker Packs/day: 0.00 Years: 20.00 Smokeless tobacco: Former User Types: Chew Comment: 1 pack every 2 days Alcohol use: Yes 0.6 oz/week Cans of beer: 1 per week Comment: daily Drug use: No ROS: General: Feels well, no weight changes, fever, chills. HEENT: No sinus congestion, earache, sore throat. Cardiac: No chest pain, palpitations, shortness of breath Resp: No cough, wheeze. GI: No reflux symptoms, food intolerance, bowel changes. : No urinary frequency, dysuria. MS: No pain or joint complaints. PHYSICAL EXAMINATION BP 137/62 Pulse 70 Temp 36.6 ?C (97.9 ?F) Resp 18 Ht 177.8 cm (5' 10) Wt 91.2 kg (201 lb) SpO2 98% BMI 28.84 kg/m? General: Alert and oriented, no distress, pleasant and cooperative. Heart: Regular, normal S1 and S2, no murmurs, rubs, or gallops Lungs: Clear to auscultation bilaterally Abdomen: Benign Extremities: Feet/ankles without edema, posterior tibial pulses full and symmetrical Multiple scattered actinic keratoses. Health Maintenance List LIPID SCREEN due on 1974 PROSTATE CANCER SCREENING DISCUSSION due on 1989 PNEUMOVAX AGE 65 AND OVER WITH 5YR LOOKBACK(1) due on 2004 COLORECTAL CANCER SCREENING,SEE MODIFIER due on 06/06/2018 DIABETES SCREEN due on 01/31/2018 INFLUENZA(Season Ended) due on 02/16/2018 DTAP,TDAP,TD(2 - Td) due on 07/19/2027 ADULT PREVNAR-13 Completed Data reviewed No results found for: CHOL, HDL, LDL, TRIG, HBA1C, TSH, PSA, GLU Outside labs reviewed. Assessment/Plan: (M47.817) Lumbosacral spondylosis without myelopathy (primary encounter diagnosis) Comment: chronic back pain Plan: No orders. (M51.37) Degeneration of lumbar or lumbosacral intervertebral disc Comment: Plan: update (H35.3220) Exudative age-related macular degeneration of left eye, unspecified stage (HCC) Comment: noted for record. Plan: continue with the ophth. (E78.2) Hyperlipidemia, mixed Comment: on Rx Plan: continue (C61) Prostate cancer (HCC) Comment: history Plan: surveillance (I10) Essential hypertension Comment: adequate control Plan: continue (L57.0, X32.XXXA) Solar keratosis Comment: noted Plan: derm / Signed Prescriptions Disp Refills lisinopril-hydrochlorothiazide (PRINZIDE,ZESTORETIC) 10-12.5 mg per tablet 90 tablet 3 Sig: Take 1 tablet by mouth once daily. MICHI: No simvastatin (ZOCOR) 10 mg tablet 90 tablet 3 Sig: Take 1 tablet by mouth daily at bedtime. For cholesterols. RTO: Karey Preciado MD Referring Provider: SELF [200] Allergies As of Date: 11/02/2017 (No Known Allergies) Date Reviewed: 11/02/2017 Reviewed by: Irasema Francisco Ma - Fully Assessed Reason for Visit: Establish Care [42] Physical [83] Primary Visit Diagnosis:Lumbosacral spondylosis without myelopathy [M47.817] Other Visit Diagnoses:Degeneration of lumbar or lumbosacral intervertebral disc [M51.37] Exudative age-related macular degeneration of left eye, unspecified stage (HCC) [H35.3220] Hyperlipidemia, mixed [E78.2] Prostate cancer (HCC) [C61] Essential hypertension [I10] Solar keratosis [L57.0, X32.XXXA] Order(s):lisinopril-hydrochlorothiazide (PRINZIDE,ZESTORETIC) 10-12.5 mg per tabletTake 1 tablet by mouth once daily.Disp: 90 tabletRfl: 3 simvastatin (ZOCOR) 10 mg tabletTake 1 tablet by mouth daily at bedtime. For cholesterols.Disp: 90 tabletRfl: 3 Prescriptions as of 11/02/2017 Sig: LISINOPRIL 10 MG-HYDROCHLOROT* Take 1 tablet by mouth once d* ALEVE ORAL Take by mouth. ASPIRIN 81 MG TABLET,DELAYED * Take 81 mg by mouth once khari* EYE VITAMIN AND MINERALS ORAL Take by mouth. * CALCIUM 300 ORAL Take 1 tablet by mouth once d* * CENTRUM SILVER ORAL Take 1 tablet by mouth. * GLUCOSAMINE AND CHONDROIT SUL.N* Take 2 tablets by mouth once * SIMVASTATIN 10 MG TABLET Take 1 tablet by mouth daily * Problem List As Of Date 11/02/2017 Noted Resolved Lumbosacral spondylosis without myelopathy [M47*INVALID FOR* Degeneration of lumbar or lumbosacral intervert*INVALID FOR* Prostate cancer (HCC) [C61] INVALID FOR* Exudative age-related macular degeneration of l*INVALID FOR* Essential hypertension [I10] INVALID FOR* Prescriptions ordered this encounter Disp Refills Start End LISINOPRIL 10 MG-HYDROCHLOROTHIAZIDE* 90 t* 3 11/02/2017 Route: ORAL Sig: Take 1 tablet by mouth once daily. SIMVASTATIN 10 MG TABLET 90 t* 3 11/02/2017 Route: ORAL Sig: Take 1 tablet by mouth daily at bedtime. For cholesterols. Medications Discontinued During This Encounter ascorbic acid (VITAMIN C) 500 mg tab* 11/02/2017 Class: Historical Med Route: ORAL Sig: Take 500 mg by mouth once daily. NOT TAKING Disc: Reason for discontinue is not on file. traMADol (ULTRAM) 50 mg tablet 60 t* 0 03/06/2016 11/02/2017 Class: Print RX Si tablet 3 times a day when necessary with food Patient not taking: Reported on 06/19/2017 Disc: Reason for discontinue is not on file. benzonatate (TESSALON PERLE) 100 mg * 30 c* 0 06/19/2017 11/02/2017 Route: ORAL Sig: Take 2 capsules by mouth three times daily as needed. Patient not taking: Reported on 11/02/2017 Disc: Reason for discontinue is not on file. azithromycin (ZITHROMAX) 250 mg tabl* 6 ta* 0 06/19/2017 11/02/2017 Route: ORAL Sig: Take 1 tablet by mouth as directed. Take 2 tablets by mouth on Day 1, then 1 tablet by mouth every day thereafter for 4 days Patient not taking: Reported on 11/02/2017 Disc: Reason for discontinue is not on file. omeprazole (PRILOSEC) 20 mg capsule 11/02/2017 Class: Historical Med Route: ORAL Sig: Take 20 mg by mouth once daily. Disc: Reason for discontinue is not on file. gabapentin (NEURONTIN) 300 mg capsule 90 c* 2 10/20/2015 11/02/2017 Class: Print RX Sig: One capsule at bedtime for 5 days then increase to one capsule twice a day for 5 days then increase to one capsule three times a day thereafter Patient not taking: Reported on 11/02/2017 Disc: Reason for discontinue is not on file. simvastatin 10 mg tablet 11/02/2017 Class: Historical Med Route: ORAL Sig: Take 10 mg by mouth daily at bedtime. Disc: Reason for discontinue is not on file. lisinopril-hydrochlorothiazide 10-12* 11/02/2017 Class: Historical Med Route: ORAL Sig: Take 1 tablet by mouth once daily. Disc: Reason for discontinue is not on file. Encounter Status:Closed by NEIL PRECIADO MD on 11/04/17 PROGRESS Observed: 06/19/2017 Status: COMPLETED Source: [place] 9:[place] [facility] [place] ID: [id number] Author: Shagufta Grider ([place]) CAMELIA Osborne Service: (none) Author Type: Physician Profile Saw Setup Operator Type: Progress Notes Filed: 06/19/2017 9:54 AM Note Text: 06/19/2017 Patient presents with: Cough: cough X 1 week, pressure headache SUBJECTIVE: This is a 77 year old that is here today for acute onset cough and nasal congestion x 1 week. Denies fever, chills, sweats, or fatigue. Patient denies wheezing, shortness of breath, increased WOB, or chest pain. Asthma: none Pneumonia: none Tobacco: none Pain on scale of 0-10 with 0 being no pain and 10 being greatest pain: 0 Nothing makes the symptoms better. Nothing makes them worse. Self-treatment:. Dayquil, nyquil The severity is mild and the symptoms are not improving. The patient did not have a similar problem in the last 3 months. The patient did not take any antibiotics in the last 3 months. Barriers to learning: none. Reviewed meds, OTCs, herbals or supplements. Reviewed allergies, medications, and past medical history.. PAST MEDICAL HISTORY Diagnosis Date - High cholesterol - Hypertension - Prostate cancer (HCC) 1998 - Snoring ALLERGIES Review of patient's allergies indicates no known allergies. MEDICATIONS Current Outpatient Prescriptions: NAPROXEN SODIUM (ALEVE ORAL) Take by mouth. aspirin, enteric coated (ASPIRIN, ENTERIC COATED) 81 mg EC tablet Take 81 mg by mouth once daily. VIT A/C/E AC/ZNOX/CUPRIC OXIDE (EYE VITAMIN AND MINERALS ORAL) Take by mouth. omeprazole (PRILOSEC) 20 mg capsule Take 20 mg by mouth once daily. ascorbic acid (VITAMIN C) 500 mg tablet Take 500 mg by mouth once daily. NOT TAKING gabapentin (NEURONTIN) 300 mg capsule One capsule at bedtime for 5 days then increase to one capsule twice a day for 5 days then increase to one capsule three times a day thereafter simvastatin 10 mg tablet Take 10 mg by mouth daily at bedtime. lisinopril-hydrochlorothiazide 10-12.5 mg per tablet Take 1 tablet by mouth once daily. CALCIUM CARBONATE (CALCIUM 300 ORAL) Take 1 tablet by mouth once daily. MULTIVITAMIN W-MINERALS/LUTEIN (CENTRUM SILVER ORAL) Take 1 tablet by mouth. GLUCOSAM SUL NA/CHONDR ORTIZ A NA (GLUCOSAMINE AND CHONDROIT SUL.NA ORAL) Take 2 tablets by mouth once daily. azithromycin (ZITHROMAX) 250 mg tablet Take 1 tablet by mouth as directed. Take 2 tablets by mouth on Day 1, then 1 tablet by mouth every day thereafter for 4 days benzonatate (TESSALON PERLE) 100 mg capsule Take 2 capsules by mouth three times daily as needed. traMADol (ULTRAM) 50 mg tablet 1 tablet 3 times a day when necessary with food (Patient not taking: Reported on 06/19/2017 ) No current facility-administered medications for this visit. Medications and allergies reviewed by this provider. SOCIAL HISTORY Social History Marital status: Spouse name: Years of education: Number of children: Social History Main Topics Smoking status: Former Smoker Packs/day: 0.00 Years: 20.00 Smokeless status: Former User Types: Chew Comment: 1 pack every 2 days Alcohol use: Yes 0.6 oz/week 1 Cans of beer per week Comment: daily Drug use: No REVIEW OF SYSTEMS Review of Systems ROS: constitutional-neg, heent-neg, heart-neg, respiratory-cough, skin-neg, lymph-neg, neuro-neg, - All systems neg except as noted above in HPI. OBJECTIVE: BP 139/72 (BP Site: Right Arm, BP Position: Sitting, BP Cuff Size: Regular Adult) Pulse 80 Temp 36.8 ?C (98.2 ?F) (Tympanic) Wt 93.4 kg (206 lb) SpO2 98% BMI 29.98 kg/m2. Vital signs reviewed by this provider. Physical Exam AAOx3, no acute distress, patient is pleasant, well groomed, dressed appropriately. General: WD, WN, NAD, alert. HEENT: No facial erythema or swelling. Eyes: PERRL. EOMI. No erythema or discharge. -Ears: TMs pearly kirkpatrick with light reflex, ear canals not red or swollen. Small effusion bilaterally. -Nose-nasal mucosa pink and no discharge/polyps, nasal septum midline. -Throat: pharynx pink with no edema/mass/exudate/erythema, buccal mucosa pink and moist with no lesions. Post nasal drainage present on posterior pharynx. Head: no maxillary tenderness noted upon palpation. Neck: no masses or lymphadenopathy. Chest: CTA bilaterally with equal breath sounds; good air exchange throughout. No wheezing, rhonchi, or crackles; no retractions, tripoding, or nasal flaring noted. Heart: RRR, no murmur, rub, or gallop.. ASSESSMENT/PLAN: 1. Acute bacterial bronchitis - ICD9: 466.0, 041.9, ICD10: J20.8, B96.89 (primary diagnosis) 2. Nasal congestion - ICD9: 478.19, ICD10: R09.81 - AZITHROMYCIN 250 MG TABLET - BENZONATATE 100 MG CAPSULE Encourage fluids, rest. Tylenol and Motrin for pain and fever. If you have a fever rotate between the Tylenol and Motrin every 3 hours. Saline Nasil spray, Neti Pot, vaporizer, Vicks. Try Cepocol lozenges or Chloraseptic throat spray. Warm salt water gargles. Cough and deep breath- 10x/hr while awake. Take entire course of Antibiotics. Call PCP if sx worsen or no better. If symptoms worsen, or new symptoms develop go to ER. If you have worsening of breathing or breathing changes- go to ER. If you have persistent fever unrelieved by Tylenol/Motrin- go to the ER. Follow up as needed. The patient verbalizes understanding and is in agreement with plan of care. Barriers to learning: none. Shagufta Osborne PA-C CNOV Observed: 06/19/2017 Status: COMPLETED Source: [place] 9:45 AM [facility] [place] Visit ([place]) ANDRÉS HALEY ([id number]) 1940 M Date Time Provider Department 06/19/17 9:45 AM SHAGUFTA OSBORNE) ALEXANDRU During your visit today, we recorded the following information about you: Temperature Pulse Blood pressure Weight 98.2 degrees 80/minute 139/72 93.4 kg Shagufta Osborne PA-C, PA 06/19/2017 9:54 AM Signed 06/19/2017 Patient presents with: Cough: cough X 1 week, pressure headache SUBJECTIVE: This is a 77 year old that is here today for acute onset cough and nasal congestion x 1 week. Denies fever, chills, sweats, or fatigue. Patient denies wheezing, shortness of breath, increased WOB, or chest pain. Asthma: none Pneumonia: none Tobacco: none Pain on scale of 0-10 with 0 being no pain and 10 being greatest pain: 0 Nothing makes the symptoms better. Nothing makes them worse. Self-treatment:. Dayquil, nyquil The severity is mild and the symptoms are not improving. The patient did not have a similar problem in the last 3 months. The patient did not take any antibiotics in the last 3 months. Barriers to learning: none. Reviewed meds, OTCs, herbals or supplements. Reviewed allergies, medications, and past medical history.. PAST MEDICAL HISTORY Diagnosis Date - High cholesterol - Hypertension - Prostate cancer (HCC) 1998 - Snoring ALLERGIES Review of patient's allergies indicates no known allergies. MEDICATIONS Current Outpatient Prescriptions: NAPROXEN SODIUM (ALEVE ORAL) Take by mouth. aspirin, enteric coated (ASPIRIN, ENTERIC COATED) 81 mg EC tablet Take 81 mg by mouth once daily. VIT A/C/E AC/ZNOX/CUPRIC OXIDE (EYE VITAMIN AND MINERALS ORAL) Take by mouth. omeprazole (PRILOSEC) 20 mg capsule Take 20 mg by mouth once daily. ascorbic acid (VITAMIN C) 500 mg tablet Take 500 mg by mouth once daily. NOT TAKING gabapentin (NEURONTIN) 300 mg capsule One capsule at bedtime for 5 days then increase to one capsule twice a day for 5 days then increase to one capsule three times a day thereafter simvastatin 10 mg tablet Take 10 mg by mouth daily at bedtime. lisinopril-hydrochlorothiazide 10-12.5 mg per tablet Take 1 tablet by mouth once daily. CALCIUM CARBONATE (CALCIUM 300 ORAL) Take 1 tablet by mouth once daily. MULTIVITAMIN W-MINERALS/LUTEIN (CENTRUM SILVER ORAL) Take 1 tablet by mouth. GLUCOSAM SUL NA/CHONDR ORTIZ A NA (GLUCOSAMINE ANDamp; CHONDROIT SUL.NA ORAL) Take 2 tablets by mouth once daily. azithromycin (ZITHROMAX) 250 mg tablet Take 1 tablet by mouth as directed. Take 2 tablets by mouth on Day 1, then 1 tablet by mouth every day thereafter for 4 days benzonatate (TESSALON PERLE) 100 mg capsule Take 2 capsules by mouth three times daily as needed. traMADol (ULTRAM) 50 mg tablet 1 tablet 3 times a day when necessary with food (Patient not taking: Reported on 06/19/2017 ) No current facility-administered medications for this visit. Medications and allergies reviewed by this provider. SOCIAL HISTORY Social History Marital status: Spouse name: Years of education: Number of children: Social History Main Topics Smoking status: Former Smoker Packs/day: 0.00 Years: 20.00 Smokeless status: Former User Types: Chew Comment: 1 pack every 2 days Alcohol use: Yes 0.6 oz/week 1 Cans of beer per week Comment: daily Drug use: No REVIEW OF SYSTEMS Review of Systems ROS: constitutional-neg, heent-neg, heart-neg, respiratory- cough, skin-neg, lymph-neg, neuro-neg, - All systems neg except as noted above in HPI. OBJECTIVE: BP 139/72 (BP Site: Right Arm, BP Position: Sitting, BP Cuff Size: Regular Adult) Pulse 80 Temp 36.8 ?C (98.2 ?F) (Tympanic) Wt 93.4 kg (206 lb) SpO2 98% BMI 29.98 kg/m2. Vital signs reviewed by this provider. Physical Exam AAOx3, no acute distress, patient is pleasant, well groomed, dressed appropriately. General: WD, WN, NAD, alert. HEENT: No facial erythema or swelling. Eyes: PERRL. EOMI. No erythema or discharge. -Ears: TMs pearly kirkpatrick with light reflex, ear canals not red or swollen. Small effusion bilaterally. -Nose-nasal mucosa pink and no discharge/polyps, nasal septum midline. -Throat: pharynx pink with no edema/mass/exudate/erythema, buccal mucosa pink and moist with no lesions. Post nasal drainage present on posterior pharynx. Head: no maxillary tenderness noted upon palpation. Neck: no masses or lymphadenopathy. Chest: CTA bilaterally with equal breath sounds; good air exchange throughout. No wheezing, rhonchi, or crackles; no retractions, tripoding, or nasal flaring noted. Heart: RRR, no murmur, rub, or gallop.. ASSESSMENT/PLAN: 1. Acute bacterial bronchitis - ICD9: 466.0, 041.9, ICD10: J20.8, B96.89 (primary diagnosis) 2. Nasal congestion - ICD9: 478.19, ICD10: R09.81 - AZITHROMYCIN 250 MG TABLET - BENZONATATE 100 MG CAPSULE Encourage fluids, rest. Tylenol and Motrin for pain and fever. If you have a fever rotate between the Tylenol and Motrin every 3 hours. Saline Nasil spray, Neti Pot, vaporizer, Vicks. Try Cepocol lozenges or Chloraseptic throat spray. Warm salt water gargles. Cough and deep breath- 10x/hr while awake. Take entire course of Antibiotics. Call PCP if sx worsen or no better. If symptoms worsen, or new symptoms develop go to ER. If you have worsening of breathing or breathing changes- go to ER. If you have persistent fever unrelieved by Tylenol/Motrin- go to the ER. Follow up as needed. The patient verbalizes understanding and is in agreement with plan of care. Barriers to learning: none. PEEWEE Young PA-C, [place] 06/19/2017 9:52 AM Signed ASSESSMENT/PLAN: 1. Acute bacterial bronchitis - 2. Nasal congestion - - AZITHROMYCIN 250 MG TABLET - BENZONATATE 100 MG CAPSULE Encourage fluids, rest. Tylenol and Motrin for pain and fever. If you have a fever rotate between the Tylenol and Motrin every 3 hours. Saline Nasil spray, Neti Pot, vaporizer, Vicks. Try Cepocol lozenges or Chloraseptic throat spray. Warm salt water gargles. Cough and deep breath- 10x/hr while awake. Take entire course of Antibiotics. Call PCP if sx worsen or no better. If symptoms worsen, or new symptoms develop go to ER. If you have worsening of breathing or breathing changes- go to ER. If you have persistent fever unrelieved by Tylenol/Motrin- go to the ER. Follow up as needed. The patient verbalizes understanding and is in agreement with plan of care. Barriers to learning: none. Shagufta Osborne PA-C Referring Provider: SELF [200] Allergies As of Date: 06/19/2017 (No Known Allergies) Date Reviewed: 06/19/2017 Reviewed by: Beatrice Dias Ma - Fully Assessed Reason for Visit: Cough [28] Cmt: cough X 1 week, pressure headache Primary Visit Diagnosis:Acute bacterial bronchitis [J20.8, B96.89] Other Visit Diagnosis:Nasal congestion [R09.81] Order(s):azithromycin (ZITHROMAX) 250 mg tabletTake 1 tablet by mouth as directed. Take 2 tablets by mouth on Day 1, then 1 tablet by mouth every day thereafter for 4 daysDisp: 6 tabletRfl: 0 benzonatate (TESSALON PERLE) 100 mg capsuleTake 2 capsules by mouth three times daily as needed.Disp: 30 capsuleRfl: 0 Prescriptions as of 06/19/2017 Sig: ALEVE ORAL Take by mouth. ASPIRIN 81 MG TABLET,DELAYED * Take 81 mg by mouth once khari* EYE VITAMIN AND MINERALS ORAL Take by mouth. OMEPRAZOLE 20 MG CAPSULE,URIEL* Take 20 mg by mouth once khari* ASCORBIC ACID (VITAMIN C) 500* Take 500 mg by mouth once marion* GABAPENTIN 300 MG CAPSULE One capsule at bedtime for 5 * * SIMVASTATIN 10 MG TABLET Take 10 mg by mouth daily at * * LISINOPRIL 10 MG-HYDROCHLOROT* Take 1 tablet by mouth once d* * CALCIUM 300 ORAL Take 1 tablet by mouth once d* * CENTRUM SILVER ORAL Take 1 tablet by mouth. * GLUCOSAMINE AND CHONDROIT SUL.N* Take 2 tablets by mouth once * AZITHROMYCIN 250 MG TABLET Take 1 tablet by mouth as dir* BENZONATATE 100 MG CAPSULE Take 2 capsules by mouth thre* TRAMADOL 50 MG TABLET 1 tablet 3 times a day when n* Patient not taking: Reported on 06/19/2017 Problem List As Of Date 06/19/2017 Noted Resolved Lumbosacral spondylosis without myelopathy [M46*INVALID FOR* Degeneration of lumbar or lumbosacral intervert*INVALID FOR* Other instructions from your clinician: ASSESSMENT/PLAN: 1. Acute bacterial bronchitis - 2. Nasal congestion - - AZITHROMYCIN 250 MG TABLET - BENZONATATE 100 MG CAPSULE Encourage fluids, rest. Tylenol and Motrin for pain and fever. If you have a fever rotate between the Tylenol and Motrin every 3 hours. Saline Nasil spray, Neti Pot, vaporizer, Vicks. Try Cepocol lozenges or Chloraseptic throat spray. Warm salt water gargles. Cough and deep breath- 10x/hr while awake. Take entire course of Antibiotics. Call PCP if sx worsen or no better. If symptoms worsen, or new symptoms develop go to ER. If you have worsening of breathing or breathing changes- go to ER. If you have persistent fever unrelieved by Tylenol/Motrin- go to the ER. Follow up as needed. The patient verbalizes understanding and is in agreement with plan of care. Barriers to learning: none. Shagufta Osborne PA-C Prescriptions ordered this encounter Disp Refills Start End AZITHROMYCIN 250 MG TABLET 6 ta* 0 06/19/2017 Route: ORAL Sig: Take 1 tablet by mouth as directed. Take 2 tablets by mouth on Day 1, then 1 tablet by mouth every day thereafter for 4 days BENZONATATE 100 MG CAPSULE 30 c* 0 06/19/2017 Route: ORAL Sig: Take 2 capsules by mouth three times daily as needed. Encounter Status:Closed by SHAGUFTA OSBORNE on 06/19/17 ALLERGIES ALLERGIES DATE TYPE / CODE NAME / CODE REACTION SEVERITY SOURCE 05/02/2018 Drug No Known Unknown [facility] Allergy/416 Allergies/O25748 Hospital 545235(SNOM 0388(RXNORM) Repository ED CT) Drug NO KNOWN [facility] Class/35044 ALLERGIES [address] [place] 1003(SNOMED Repository CT) ENCOUNTERS ENCOUNTERS ADMIT/DISCHARGE ACCOUNT ADMITTING ENCOUNTER LOCATION SOURCE NUMBER CLASS 05/14/2018 [id number] Ambulatory [facility] ing:[facility] Repository 05/02/2018/05/02/20 [id number] Emergency [address] ing:ED Repository 03/20/2018/03/21/20 [id number] Phan, Inpatient [address] ing:DE4Ljxa: Repository [id number]: 1 03/08/2018 [id number] Ambulatory BMSBuilding:W [facility] Repository 03/01/2018/03/04/20 [id number] Ambulatory [address] Repository 02/19/2018/02/21/20 [id number] Ambulatory [address] Repository 11/02/2017/11/06/19 [id number] Ambulatory [address] Repository 06/19/2017/06/20/19 [id number] Ambulatory [address] Repository PAYERS PAYERS ENCOUNTER GUARANTOR PAYER SUBSCRIBER SOURCE 05/14/2018 CHICA P Primary CHICA P Joshua [id number] Insurance:JOSEMANUEL WETZEL: Community [employer] [id number] Number: Repository [phone]: [phone] [id number] [phone] () Date:[id number] [address]NQ: 05/14/2018 Secondary NOT GIVENUNK Joshua Insurance:SELF PAY [facility] Number: Effective Repository Date:2018-05-13 05/02/2018 CHICA P Primary CHICA P Joshua [id number] Insurance:JOSEMANUEL WETZEL: Community [employer] [id number] [place] Number[facility] Repository [address]Jjz: ([phone] [id number] [phone] (HP) Date:[id number] [address], [place] [address]NM: 05/02/2018 Secondary NOT GIVENUNK Joshua Insurance:SELF PAY [facility] Number: Effective Repository Date:2018-05-02 03/20/2018 CHICA P Primary CHICA P Joshua [id number] Insurance:ANTHEM COBLENTZDOB: Community [employer] [facility] [id number] [place] Number: Repository [phone]: ([phone] [id number] [phone] (HP) Date:[id number] [address], [place] [address]TC: 03/20/2018 Secondary NOT GIVENUNK [place] Insurance:SELF PAY [facility] Number: Effective Repository Date:2018-02-21 03/08/2018 CHICA P Primary CHICA P Joshua [id number] Insurance:ANTHEM COBLENTZDOB: Community [employer] [id number] [place] Number: Repository [id number]: ([phone] [id number] [phone] (HP) Date:[id number] [address]BZ[address], [place] [address]ZP: 03/08/2018 Secondary NOT GIVENUNK [place] Insurance:SELF PAY [facility] Number: Effective Repository Date:2018-03-08
== END ==
PROVIDERS: Family Provider Family Medicine; PCP Family Medicine; Referring Provider Specialist; Visit Provider Specialist
DX: M79.662 Pain in left lower leg (principal)
CPT/HCPCS: 93971

== ENCOUNTER 2021-08-22 12:01 | Emergency (ER) | payer MEDICARE, SELFPAY ==
[2021-08-22 12:02] VITALS: BP 164/78; PULSE 96; RESP 16; TEMP 36.4; O2SAT 94; BMI 29.2
--- NOTE | 2021-08-22 12:42 | RAD_ITS ---
STUDY: X-RAY - LUMBAR SPINE REASON FOR EXAM: Male, 81 years old. Trauma TECHNIQUE: 3 view(s) of the lumbar spine were obtained. COMPARISON: None FINDINGS: Normal lumbar lordosis. There is no substantial scoliosis. There is a normal alignment of the vertebrae. There is multilevel endplate spondylosis of the lumbar vertebrae. 50% loss of height of the L1 vertebra in keeping with a compression fracture. There is multi-level degenerative disc disease with multi-level disc space narrowing. Facet joint osteoarthritis. There is atherosclerotic calcification of the abdominal aorta without a demonstrated aneurysm. RAD/Lumbar Spine 2 or 3 Views IMPRESSION: Degenerative changes of the spine, as detailed above. 50% loss of height of the L1 vertebrae. Electronically Signed: Edmar Youngblood MD at 13:37 EST ,
--- NOTE | 2021-08-22 12:51 | RAD_ITS ---
STUDY: X-RAY - PELVIS AND LEFT HIP REASON FOR EXAM: Male, 81 years old. Left hip pain following a fall. TECHNIQUE: 3 views of the pelvis and hip. COMPARISON: None. FINDINGS: There is a non-specific bowel gas pattern. Surgical clips are seen in the central portion of the pelvis suggestive of prior prostatectomy. There is narrowing with cortical sclerosis and osteophyte formation of the sacroiliac joint consistent with degenerative osteoarthritic changes. Normal bilateral superior and inferior pubic rami. Normal pubic symphysis. Normal bilateral ischial tuberosities. Normal visualized femoral head. Normal acetabulum. There is moderate articular joint space narrowing of the hip. The patient is status post ORIF of the right intertrochanteric fracture. RAD/Hip uni 4+ views with Pelvis IMPRESSION: No fracture or dislocation of the left hip is seen. Electronically Signed: Edmar Youngblood MD at 13:38 EST ,
--- NOTE | 2021-08-22 12:57 | ED.VIS.BACK ---
HPI History of Present Illness Chief Complaint: Back Narrative Narrative: Patient sustained a mechanical fall 3 days ago, he landed on his left hip and has lateral hip pain he also has some buttock pain and some low back pain. He is able to ambulate but has quite a bit of pain. No head injury no neck pain no other injuries. The fall was mechanical he is supposed to use a cane or walker and at the time he was not. PFSH PFS Home Medications calcium carbonate-vitamin D3 [Caltrate with Vitamin D3] 1 ea PO BID 08/28/16 [History Last Taken 03/14/18] lisinopril-hydrochlorothiazide [Zestoretic] 1 tab PO DAILY 08/28/16 [History Last Taken 09/07/16 08:30] omeprazole 1 tab PO DAILY 08/28/16 [History Last Taken 03/20/18 07:00] simvastatin 20 mg PO QHS 08/28/16 [History Last Taken Unknown] acetaminophen 1,000 mg PO Q8 #90 tablet 03/21/18 [Rx Last Taken Unknown] aspirin 81 mg PO BIDCM #60 tab.chew 03/21/18 [Rx Last Taken Unknown] meloxicam 7.5 mg PO BID #30 tablet 03/21/18 [Rx Last Taken Unknown] cephalexin 500 mg PO Q6 #40 capsule 05/02/18 [Rx Last Taken Unknown] Allergy/AdvReac Type Severity Reaction Status Date / Time No Known Allergies Allergy Verified 08/22/21 12:04 Social History Smoking Status: Former smoker ROS ROS ED ROS Narrative Social: Noncontributory Medications: Reviewed Past medical history: Reviewed Review of systems General: Patient has no head injury or loss of consciousness HEENT: No facial injury Neck: No neck pain Cardiovascular: Patient denies any chest pain or palpitations Chest wall: No chest wall contusions Respiratory: There is no shortness of breath GI: There is no nausea vomiting diarrhea or abdominal pain, no abdominal wall contusions Skin: No lacerations or abrasions Neurological: Patient has no memory loss, confusion, or any focal weakness Psychiatric: No recent behavioral changes Back: Low back pain Musculoskeletal: Left hip pain All other systems are reviewed and normal EXAM Physical Exam Narrative Exam Narrative: Physical exam Vitals reviewed General: Patient appears relatively comfortable. HEENT: No facial injury Head: No head injury Eyes: Extraocular movements intact Neck: No C-spine tenderness with full range of motion Heart: Regular rate normal pulses Chest wall: No chest wall pain Lungs clear lungs bilaterally with normal inspiration and expiration without tachypnea GI: Abdomen is soft and nontender there is no mass no guarding no abdominal wall contusion : Stable pelvis Musculoskeletal: Muscle tenderness is over the greater trochanter on the left, there is no pain with logrolling. There is some pain over the buttocks and very slight pain in the lumbar region. Skin: No abrasions or laceration Neurological: Patient is alert and oriented with no focal deficits Const Vital Signs: 08/22/21 12:02 Temperature 97.6 F L Temperature Source Temporal Pulse Rate 96 Respiratory Rate 16 Blood Pressure 164/78 H Blood Pressure Mean 106 Pulse Ox 94 Oxygen Delivery Method Room Air MDM MDM MDM Narrative Medical decision making narrative: Patient has a normal radiographic work-up, he appears well. I will discharge him in stable condition with analgesia. Radiography Diagnostic Testing: X-ray hip three views read by me does not show any fracture. Discharge Plan Triage Chief Complaint: Back ED Provider: Dung Aguirre Dx/Rx/DC Orders Prescriptions: No Action simvastatin 20 MG tablet 20 mg PO QHS RF: 0 omeprazole 20 MG Capsule.Dr 1 tab PO DAILY RF: 0 lisinopril-hydrochlorothiazide [Zestoretic] 1 TABLET tablet 1 tab PO DAILY RF: 0 calcium carbonate-vitamin D3 [Caltrate with Vitamin D3] 1 EACH tablet 1 ea PO BID RF: 0 acetaminophen 500 MG tablet 1,000 mg PO Q8 Qty: 90 RF: 0 meloxicam 7.5 MG tablet 7.5 mg PO BID Qty: 30 RF: 0 aspirin 81 MG Tab.Chew 81 mg PO BIDCM Qty: 60 RF: 0 cephalexin 500 MG capsule 500 mg PO Q6 Qty: 40 RF: 0 Primary Care Provider: Rafiq Contreras
== END 2021-08-22 14:08 | disposition home or self-care (01) ==
LOC: ED 13:29
PROVIDERS: Emergency Provider Emergency Medicine; PCP Family Medicine; Visit Provider Emergency Medicine
DX: M54.50 Low back pain, unspecified (principal); Z87.891 Personal history of nicotine dependence; Z91.81 History of falling
CPT/HCPCS: 72100; 73503; 99282

== ENCOUNTER 2022-08-15 10:25 | Emergency (ER) | payer MEDICARE, SELFPAY ==
[2022-08-15 10:27] VITALS: BP 145/73; PULSE 83; RESP 18; TEMP 36.4; O2SAT 97
--- NOTE | 2022-08-15 10:31 | RAD_ITS ---
STUDY: X-RAY - RIGHT SHOULDER REASON FOR EXAM: Male, 82 years old. FALL/PAIN TECHNIQUE: 4 view(s) of the shoulder. COMPARISON: None. FINDINGS: Normal glenohumeral articulation. Normal acromioclavicular joint. Normal acromion. Normal humeral head and visualized proximal humerus. There is periarticular soft tissue calcification consistent with a calcific tendinitis. Normal visualized pulmonary apex. RAD/Shoulder min 2 Views IMPRESSION: Mild calcific tendinitis. Electronically Signed: Edmar Youngblood MD at 11:25 EST ,
[2022-08-15 13:35] VITALS: BMI 31.4
--- NOTE | 2022-08-15 14:57 | ED.VIS.FALL ---
HPI HPI - Fall History of Present Illness Chief Complaint: Fall Informant: patient Occured/Mechanism Occurred: Today Mechanism/Context: Yes same level fall Pain/Injury Worsened by: Nothing Relieved by: Nothing Associated Symptoms Associated Symptoms: Negative for Parasthesias, Weakness, Loss of function, Inability to ambulate, Loss of consciousness or Amnesia Narrative Narrative: Patient presents after a fall that occurred today. Patient lost his balance and fell. Patient has a history of Parkinson's. Patient hit his right shoulder. Patient describes his pain as aching. Patient states it is worse with movement. Patient states nothing makes his pain any better. Patient denies any paresthesias or weakness. Patient denies any head injury or loss of consciousness. Patient denies any chest pain or shortness of breath. Patient denies any nausea or vomiting. Patient does not take any anticoagulants. [facility] Medical History (Updated 08/15/22 @ 15:[address] Hilario Mejia, DO) GERD (gastroesophageal reflux disease) Macular degeneration Parkinsons Home Medications calcium carbonate 600 mg-vitamin D3 20 mcg (800 unit) tablet (Caltrate with Vitamin D3) 1 ea PO BID SUPPLEMENT 08/28/16 [History Last Taken 03/14/18] lisinopril 10 mg-hydrochlorothiazide 12.5 mg tablet (Zestoretic) 0.5 tab PO DAILY BP 08/28/16 [History Last Taken 09/07/16 08:30] omeprazole 20 mg capsule,delayed release 1 tab PO DAILY STOMACH ACID 08/28/16 [History Last Taken 03/20/18 07:00] simvastatin 20 mg tablet 20 mg PO QHS CHOLESTEROL 08/28/16 [History Last Taken Unknown] acetaminophen 500 mg tablet 1,000 mg PO Q8 ##90 03/21/18 [Rx Last Taken Unknown] aspirin 81 mg chewable tablet 81 mg PO BIDCM ##60 03/21/18 [Rx Last Taken Unknown] amantadine HCl 100 mg capsule 100 mg PO DAILY 08/15/22 [History Last Taken Unknown] carbidopa 25 mg-levodopa 100 mg tablet 2 tab PO 4X/DAY 08/15/22 [History Last Taken Unknown] hydrocodone-acetaminophen 5-325mg 5mg-325mg 1 tab PO QHS PRN pain 3 days #10 tabs 08/15/22 [Rx Last Taken Unknown] Allergy/AdvReac Type Severity Reaction Status Date / Time No Known Allergies Allergy Verified 08/15/22 10:28 Surgical History (Updated 08/15/22 @ 15:[address] Hilario Mejia DO) History of carpal tunnel surgery Hx of prostatectomy Hx of total knee replacement Status post-operative repair of closed fracture of right hip Social History Smoking Status: Former smoker ROS ROS ED Constitutional Constitutional ED: Denies chills or fever(s) Eyes Eyes: Reports change in vision; Denies blurry vision ENT ENT ED: Denies rhinorrhea or sore throat Cardiovascular Cardiovascular: Denies chest pain or palpitations Respiratory/Chest Respiratory/Chest: Denies cough or dyspnea Gastrointestinal Gastrointestinal: Denies nausea or vomiting Genitourinary Genitourinary ED: Denies dysuria or hematuria Musculoskeletal Musculoskeletal: Reports back pain; Denies neck pain Integumentary Denies abscess or rash Neurologic Neurologic: Denies headache(s) or weakness Allergic/Immunologic Allergic/Immunologic ED: Denies mouth swelling or urticaria EXAM Physical Exam Const Vital Signs: 08/15/22 10:27 08/15/22 13:25 Temperature 97.5 F L Temperature Source Temporal Pulse Rate 83 Respiratory Rate 18 Respiratory Effort Normal Non-Labored Respiratory Depth Normal Respiratory Pattern Normal Blood Pressure 145/73 H Blood Pressure Mean 97 Pulse Ox 97 Oxygen Delivery Method Room Air Room Air Positive well nourished and well developed General Appearance ED: well developed and NAD HEENT Reports normocephalic atraumatic Neck full ROM and supple Chest Wall inspection of chest normal Resp normal respiratory effort and clear to auscultation bilaterally Cardio regular rate and regular rhythm GI non-tender Palpation: soft Extremity Extremity Narrative: There is tenderness over the right shoulder. There is no bony crepitance or step-off. There is no obvious deformity noted. Range of motion was limited in all motions of the right shoulder secondary to pain. Strength is 5/5 in the radial, median, and ulnar areas. Sensation was intact to light touch in the radial, median, ulnar, and axillary areas. Radial pulses are equal bilaterally. Neuro oriented x3, CN's II-XII intact bilaterally, moves all extremities, no focal motor deficits and no sensory deficits noted Atif Coma Scale: document GCS findings Spontaneous Obeys Commands Oriented 15 Sensorium / Orientation: alert Motor Exam: strength 5/5 throughout Psych mental status grossly normal MDM MDM MDM Narrative Medical decision making narrative: Differential diagnosis includes fracture, dislocation, and sprain. X-rays of the right shoulder will be obtained to assess for fracture and dislocation. Radiography Diagnostic Testing: Clinical Impression(s) from Imaging Studies Shoulder X-Ray 08/15/22 10:31 IMPRESSION: Mild calcific tendinitis. Electronically Signed: Edmar Youngblood MD at 11:25 EST , X-rays of the right shoulder were obtained. There are 4 views. On my independent interpretation, there is no acute fracture or dislocation. There is no soft tissue swelling. Radiologist also interpreted the x-rays and agrees. He also noted mild calcific tendinitis. Treatment and Re-Evaluation Narrative: Patient was advised of his findings. Patient was instructed to use ice to the area. Patient was instructed to do gentle range of motion exercises. Patient was instructed to follow-up with his primary care physician in 5 to 7 days. Patient was given a prescription for [place]. Patient was given his first dose here. Patient was instructed to return if worse in any way. Patient and spouse understood and were agreeable with the plan. All questions were answered. Discharge Plan Triage Chief Complaint: Fall ED Provider: Hilario Mejia Dx/Rx/DC Orders Clinical Impression: Contusion of right shoulder, Fall Instructions: ED Shoulder Contusion Prescriptions: Continued hydrocodone-acetaminophen 5-325 mg tablet 1 tab PO QHS PRN (Reason: pain) 3 Days Qty: 10 0RF No Action simvastatin 20 MG tablet 20 mg PO QHS omeprazole 20 MG capsule,delayed release(DR/EC) 1 tab PO DAILY Label Comments: TAKE 1 CAPSULE EVERY DAY lisinopril-hydrochlorothiazide [Zestoretic] 1 TABLET tablet 0.5 tab PO DAILY calcium carbonate-vitamin D3 [Caltrate with Vitamin D3] 1 EACH tablet 1 ea PO BID acetaminophen 500 MG tablet 1,000 mg PO Q8 Qty: 90 0RF aspirin 81 MG tablet,chewable 81 mg PO BIDCM Qty: 60 0RF carbidopa-levodopa 25-100 mg tablet 2 tab PO 4X/DAY Label Comments: TAKE 2 TABLETS BY MOUTH 3 TIMES A DAY 8AM,12 PM,4PM amantadine HCl 100 mg Capsule 100 mg PO DAILY Primary Care Provider: Rafiq Contreras Referrals: Rafiq Contreras MD [Primary Care Provider] - 5-7 Days Disposition Disposition: Home, Self Care
[2022-08-15] MEDS: HYDROcodone Bitartrate/Apap 5/325 Tablet PO (15:16)
== END 2022-08-15 15:19 | disposition home or self-care (01) ==
PROVIDERS: Emergency Provider Emergency Medicine; PCP Family Medicine; Visit Provider Emergency Medicine
DX: S40.011A Contusion of right shoulder, initial encounter (principal); Z87.891 Personal history of nicotine dependence; W18.30XA Fall on same level, unspecified, initial encounter; Z86.69 Personal history of other diseases of the nervous system and sense organs
CPT/HCPCS: 73030; 99282